=== PATIENT | male | born 1970 | race Caucasian/White ===

== ENCOUNTER 2018-07-18 13:15 | Inpatient (IN) | payer SELFPAY, OTHER ==
[2018-07-18 14:15] LABS: BASO # 0.1 10^3/uL (0.0-0.2); BASO % 1.2 % (0.0-1.0); EOS % 0.2 % (0.0-3.0); HEMOGLOBIN 13.8 g/dl (13.5-17.5); IMMATURE GRANULOCYTE % 0.2 % (0-3.0); LYMPH # 0.7 10^3/uL (1.5-4.5); LYMPH % 16.5 % (24.0-44.0); MEAN CORPUSCULAR HEMOGLOBIN 33.8 pg (27.0-33.0); MEAN CORPUSCULAR HGB CONC 34.5 g/dl (32.0-36.5); MONO # 0.5 10^3/uL (0.0-0.8); MONO % 11.1 % (0.0-5.0); NEUTROPHILS % 70.8 % (36.0-66.0); PLATELET COUNT, AUTOMATED 221 10^3/uL (150-450); RED BLOOD COUNT 4.08 10^6/uL (4.30-6.10); RED CELL DISTRIBUTION WIDTH 14.3 % (11.5-14.5); WHITE BLOOD COUNT 4.2 10^3/uL (4.0-10.0)
[2018-07-18 14:18] LABS: INR 1.02; PROTHROMBIN TIME 13.5 SECONDS (12.1-14.4)
[2018-07-18 14:19] LABS: PARTIAL THROMBOPLASTIN TIME 27.2 SECONDS (25.4-37.6)
[2018-07-18 14:22] LABS: AMMONIA 16 uMOL/L (<32)
[2018-07-18 14:32] LABS: ALBUMIN 3.1 GM/DL (3.2-5.2); ALBUMIN/GLOBULIN RATIO 0.97 (1.00-1.93); ALKALINE PHOSPHATASE 100 U/L (45-117); ALT/SGPT 44 U/L (12-78); ANION GAP 6 MEQ/L (8-16); AST/SGOT 34 U/L (7-37); BILIRUBIN,DIRECT 0.3 MG/DL (0.0-0.2); BLOOD UREA NITROGEN 10 MG/DL (7-18); CALCIUM LEVEL 8.7 MG/DL (8.5-10.1); CARBON DIOXIDE LEVEL 27 MEQ/L (21-32); CHLORIDE LEVEL 105 MEQ/L (98-107); CPK CREATINE PHOSPHOKINASE 157 U/L (39-308); CREATININE FOR GFR 1.29 MG/DL (0.70-1.30); GLOMERULAR FILTRATION RATE > 60.0 (>56); GLUCOSE, FASTING 109 MG/DL (70-100); MB/CK RELATIVE INDEX 1.91 (< OR =4); POTASSIUM SERUM 4.1 MEQ/L (3.5-5.1); SODIUM LEVEL 138 MEQ/L (136-145); TOTAL PROTEIN 6.3 GM/DL (6.4-8.2); TROPONIN I 0.04 NG/ML (< 0.10)
[2018-07-18] MEDS: FUROSEMIDE 40 MG/4 ML VIAL (J1940) IV ×2 (14:50→18:31)
[2018-07-18 14:54] LABS: NT-PRO BNP 15289 PG/ML (<125)
[2018-07-18] MEDS: NITROGLYCERIN 2% OINT 1 GM *U/D* PKT TOP (15:00)
[2018-07-18] MEDS ORDERED: ONDANSETRON 4 MG TAB (S0181) PO (17:00)
[2018-07-18] MEDS: MULTIVITAMINS/MINERALS THERAP 1 TAB PO (17:10)
[2018-07-18] MEDS: FOLIC ACID 1 MG TAB PO (18:27)
[2018-07-18] MEDS: LORazepam 2 MG TAB PO (18:27)
[2018-07-18] MEDS: THIAMINE 100 MG TAB PO (18:27)
[2018-07-18] MEDS ORDERED: HEPARIN SOD (PORCINE) 5000 UNITS/ML VIAL SC (22:00)
[2018-07-19] MEDS ORDERED: THIAMINE 100 MG TAB PO (09:00)
[2018-07-19] MEDS ORDERED: NICOTINE 14 MG/24 HR TRANSDERMAL TD (09:00)
== END 2018-07-18 20:19 | disposition left against medical advice (07) | DRG 194 ==
LOC: M ED 13:15 → M ED INP 16:47
DX: I50.9 Heart failure, unspecified (principal); I16.0 Hypertensive urgency; F10.10 Alcohol abuse, uncomplicated; F17.200 Nicotine dependence, unspecified, uncomplicated

== ENCOUNTER 2018-07-21 13:01 | Inpatient (IN) | payer SELFPAY ==
[2018-07-21 13:46] LABS: BASO # 0.1 10^3/uL (0.0-0.2); BASO % 1.5 % (0.0-1.0); HEMATOCRIT 48.4 % (42.0-52.0); HEMOGLOBIN 16.7 g/dl (13.5-17.5); IMMATURE GRANULOCYTE % 0.3 % (0-3.0); LYMPH # 1.2 10^3/uL (1.5-4.5); LYMPH % 31.5 % (24.0-44.0); MEAN CORPUSCULAR HEMOGLOBIN 33.9 pg (27.0-33.0); MEAN CORPUSCULAR HGB CONC 34.5 g/dl (32.0-36.5); MEAN CORPUSCULAR VOLUME 98.2 fl (80.0-96.0); MONO # 0.5 10^3/uL (0.0-0.8); MONO % 11.5 % (0.0-5.0); NEUTROPHILS # 2.2 10^3/uL (1.8-7.7); NEUTROPHILS % 55.2 % (36.0-66.0); PLATELET COUNT, AUTOMATED 164 10^3/uL (150-450); RED BLOOD COUNT 4.93 10^6/uL (4.30-6.10); RED CELL DISTRIBUTION WIDTH 14.1 % (11.5-14.5); WHITE BLOOD COUNT 3.9 10^3/uL (4.0-10.0)
[2018-07-21] MEDS: IPRATROPIUM 0.5MG/ALBUTEROL 2.5MG INH SOL UD 3ML (DUONEB)(J7620) NEB (13:50)
[2018-07-21 13:54] LABS: ABG BASE EXCESS 4.5 (-2.0-2.0); ABG HCO3 24.2 MEQ/L (22.0-26.0); ABG O2 SATURATION 97.2 % (95.0-99.0); ABG PARTIAL PRESSURE CO2 24.6 mmHg (35.0-45.0); ABG PARTIAL PRESSURE O2 79.7 mmHg (75.0-100.0); ABG STANDARD HCO3 28.5 MEQ/L (22.0-26.0); ABG TOTAL CO2 24.9 MEQ/L (22.0-29.0)
[2018-07-21 14:15] LABS: LACTIC ACID SEPSIS PROTOCOL 1.5 MMOL/L (0.4-2.0)
[2018-07-21] MEDS: MULTIVITAMINS/MINERALS THERAP 1 TAB PO (14:18)
[2018-07-21] MEDS: FOLIC ACID 1 MG TAB PO (14:18)
[2018-07-21] MEDS: NICOTINE 21MG/24HR 1 EA TRANSDERMAL TD (14:18)
[2018-07-21] MEDS: THIAMINE 100 MG TAB PO ×2 (14:18→21:00)
[2018-07-21 14:21] LABS: ALBUMIN 3.1 GM/DL (3.2-5.2); ALBUMIN/GLOBULIN RATIO 0.84 (1.00-1.93); ALKALINE PHOSPHATASE 103 U/L (45-117); ALT/SGPT 96 U/L (12-78); ANION GAP 9 MEQ/L (8-16); AST/SGOT 131 U/L (7-37); BILIRUBIN,DIRECT 0.2 MG/DL (0.0-0.2); BILIRUBIN,TOTAL 0.7 MG/DL (0.2-1.0); BLOOD UREA NITROGEN 9 MG/DL (7-18); CARBON DIOXIDE LEVEL 28 MEQ/L (21-32); CHLORIDE LEVEL 100 MEQ/L (98-107); CPK CREATINE PHOSPHOKINASE 358 U/L (39-308); CREATININE FOR GFR 1.51 MG/DL (0.70-1.30); GLOMERULAR FILTRATION RATE 52.3 (>56); GLUCOSE, FASTING 115 MG/DL (70-100); MB/CK RELATIVE INDEX 0.53 (< OR =4); NT-PRO BNP 10899 PG/ML (<125); POTASSIUM SERUM 3.7 MEQ/L (3.5-5.1); SODIUM LEVEL 137 MEQ/L (136-145); TOTAL PROTEIN 6.8 GM/DL (6.4-8.2); TROPONIN I 0.16 NG/ML (< 0.10)
[2018-07-21] MEDS: FUROSEMIDE 40 MG/4 ML VIAL (J1940) IV ×2 (15:04→18:00)
[2018-07-21 15:45] LABS: KETONE, URINE AUTO RFX NEGATIVE (NEGATIVE); LEUKOCYTE ESTERASE UR AUTO RFX NEGATIVE (NEGATIVE); MUCUS, URINE RFX SMALL (NEGATIVE); NITRITE, URINE AUTO RFX NEGATIVE (NEGATIVE); RBC, URINE AUTO RFX 1 /HPF (0-3); SPECIFIC GRAVITY UR AUTO RFX 1.006 (1.002-1.035); SQUAM EPITHELIAL CELL UR AURFX 0 /HPF (0-6); WBC, URINE AUTO RFX 0 /HPF (0-3)
[2018-07-21 16:13] LABS: CPK CREATINE PHOSPHOKINASE 323 U/L (39-308); MB/CK RELATIVE INDEX 0.43 (< OR =4); TROPONIN I 0.17 NG/ML (< 0.10)
[2018-07-21 21:03] LABS: CPK CREATINE PHOSPHOKINASE 334 U/L (39-308); MB/CK RELATIVE INDEX 0.36 (< OR =4)
[2018-07-21] MEDS: HEPARIN SOD (PORCINE) 5000 UNITS/ML VIAL SC (22:00)
[2018-07-21] MEDS ORDERED: NICOTINE 14 MG/24 HR TRANSDERMAL TD (22:00)
[2018-07-21] MEDS: LORazepam 2 MG TAB PO (23:44)
[2018-07-22] MEDS: FUROSEMIDE 40 MG/4 ML VIAL (J1940) IV ×2 (01:19→06:13)
[2018-07-22] MEDS: LORazepam 2 MG TAB PO (04:40)
[2018-07-22 05:36] LABS: HEMATOCRIT 51.9 % (42.0-52.0); HEMOGLOBIN 17.7 g/dl (13.5-17.5); MEAN CORPUSCULAR HEMOGLOBIN 33.1 pg (27.0-33.0); MEAN CORPUSCULAR HGB CONC 34.1 g/dl (32.0-36.5); PLATELET COUNT, AUTOMATED 141 10^3/uL (150-450); RED BLOOD COUNT 5.35 10^6/uL (4.30-6.10); RED CELL DISTRIBUTION WIDTH 13.9 % (11.5-14.5); WHITE BLOOD COUNT 4.2 10^3/uL (4.0-10.0)
[2018-07-22 06:04] LABS: ALBUMIN 2.9 GM/DL (3.2-5.2); ALBUMIN/GLOBULIN RATIO 0.78 (1.00-1.93); ALKALINE PHOSPHATASE 94 U/L (45-117); ALT/SGPT 87 U/L (12-78); ANION GAP 7 MEQ/L (8-16); AST/SGOT 104 U/L (7-37); BILIRUBIN,DIRECT 0.2 MG/DL (0.0-0.2); BILIRUBIN,TOTAL 0.6 MG/DL (0.2-1.0); BLOOD UREA NITROGEN 16 MG/DL (7-18); CARBON DIOXIDE LEVEL 31 MEQ/L (21-32); CHLORIDE LEVEL 98 MEQ/L (98-107); CPK CREATINE PHOSPHOKINASE 266 U/L (39-308); CREATININE FOR GFR 1.65 MG/DL (0.70-1.30); GLOMERULAR FILTRATION RATE 47.2 (>56); GLUCOSE, FASTING 102 MG/DL (70-100); MAGNESIUM LEVEL 1.8 MG/DL (1.8-2.4); MB/CK RELATIVE INDEX 0.53 (< OR =4); POTASSIUM SERUM 3.6 MEQ/L (3.5-5.1); SODIUM LEVEL 136 MEQ/L (136-145); TOTAL PROTEIN 6.6 GM/DL (6.4-8.2); TROPONIN I 0.18 NG/ML (< 0.10)
[2018-07-22] MEDS: HEPARIN SOD (PORCINE) 5000 UNITS/ML VIAL SC ×3 (06:13→21:06)
[2018-07-22] MEDS: THIAMINE 100 MG TAB PO ×2 (08:26→21:05)
[2018-07-22] MEDS: ACETAMINOPHEN TAB 650MG DOSE (2X325MG) PO (08:27)
[2018-07-22] MEDS: FOLIC ACID 1 MG TAB PO (08:27)
[2018-07-22] MEDS: MULTIVITAMINS/MINERALS THERAP 1 TAB PO (08:27)
[2018-07-22] MEDS ORDERED: SLF 3 ML SYR IV (08:45)
[2018-07-22] MEDS ORDERED: FOLIC ACID 1 MG TAB PO (09:00)
[2018-07-22] MEDS ORDERED: MULTIVITAMINS/MINERALS THERAP 1 TAB PO (09:00)
[2018-07-22] MEDS: SLF 3 ML SYR IV ×2 (13:24→21:07)
[2018-07-22] MEDS: amLODIPine 10 MG TAB PO (15:04)
[2018-07-22] MEDS: hydrALAZINE INJ 20 MG/ML VIAL IV (17:00)
[2018-07-23] MEDS: hydrALAZINE INJ 20 MG/ML VIAL IV ×4 (00:10→18:17)
[2018-07-23] MEDS: hydrOXYzine 25 MG TAB PO (00:10)
[2018-07-23 05:26] LABS: HEMATOCRIT 49.3 % (42.0-52.0); HEMOGLOBIN 17.1 g/dl (13.5-17.5); MEAN CORPUSCULAR HEMOGLOBIN 32.8 pg (27.0-33.0); MEAN CORPUSCULAR HGB CONC 34.7 g/dl (32.0-36.5); MEAN CORPUSCULAR VOLUME 94.4 fl (80.0-96.0); PLATELET COUNT, AUTOMATED 152 10^3/uL (150-450); RED BLOOD COUNT 5.22 10^6/uL (4.30-6.10); RED CELL DISTRIBUTION WIDTH 13.6 % (11.5-14.5); WHITE BLOOD COUNT 7.1 10^3/uL (4.0-10.0)
[2018-07-23] MEDS: SLF 3 ML SYR IV ×3 (05:31→21:19)
[2018-07-23] MEDS: HEPARIN SOD (PORCINE) 5000 UNITS/ML VIAL SC ×3 (05:32→21:18)
[2018-07-23 05:43] LABS: ALBUMIN 2.9 GM/DL (3.2-5.2); ALBUMIN/GLOBULIN RATIO 0.76 (1.00-1.93); ALKALINE PHOSPHATASE 97 U/L (45-117); ALT/SGPT 79 U/L (12-78); ANION GAP 8 MEQ/L (8-16); AST/SGOT 70 U/L (7-37); BILIRUBIN,DIRECT 0.2 MG/DL (0.0-0.2); BILIRUBIN,TOTAL 0.5 MG/DL (0.2-1.0); BLOOD UREA NITROGEN 23 MG/DL (7-18); CALCIUM LEVEL 8.1 MG/DL (8.5-10.1); CARBON DIOXIDE LEVEL 26 MEQ/L (21-32); CHLORIDE LEVEL 101 MEQ/L (98-107); CREATININE FOR GFR 1.37 MG/DL (0.70-1.30); GLOMERULAR FILTRATION RATE 58.6 (>56); GLUCOSE, FASTING 92 MG/DL (70-100); MAGNESIUM LEVEL 1.8 MG/DL (1.8-2.4); POTASSIUM SERUM 3.1 MEQ/L (3.5-5.1); SODIUM LEVEL 135 MEQ/L (136-145); TOTAL PROTEIN 6.7 GM/DL (6.4-8.2)
[2018-07-23] MEDS: MULTIVITAMINS/MINERALS THERAP 1 TAB PO (09:41)
[2018-07-23] MEDS: FOLIC ACID 1 MG TAB PO (09:41)
[2018-07-23] MEDS: POTASSIUM CHLORIDE 10 MEQ SR TABLET PO (09:41)
[2018-07-23] MEDS: THIAMINE 100 MG TAB PO ×2 (09:42→21:18)
[2018-07-23] MEDS: amLODIPine 10 MG TAB PO (09:42)
[2018-07-23 11:07] LABS: HEPATITIS A ANTIBODY IGM NEGATIVE (NEGATIVE); HEPATITIS B CORE ANTIBODY IGM NEGATIVE (NEGATIVE); HEPATITIS B SURFACE ANTIGEN NEGATIVE (NEGATIVE)
[2018-07-23 11:07] LABS: HEPATITIS C VIRUS ABY INDEX 0.2 INDEX (<0.8)
[2018-07-24] MEDS: hydrALAZINE INJ 20 MG/ML VIAL IV ×3 (05:14→11:43)
[2018-07-24] MEDS: SLF 3 ML SYR IV ×3 (05:14→21:03)
[2018-07-24] MEDS: HEPARIN SOD (PORCINE) 5000 UNITS/ML VIAL SC ×3 (05:14→21:03)
[2018-07-24 06:05] LABS: HEMATOCRIT 47.9 % (42.0-52.0); HEMOGLOBIN 16.5 g/dl (13.5-17.5); MEAN CORPUSCULAR HGB CONC 34.4 g/dl (32.0-36.5); MEAN CORPUSCULAR VOLUME 95.8 fl (80.0-96.0); PLATELET COUNT, AUTOMATED 161 10^3/uL (150-450); RED CELL DISTRIBUTION WIDTH 13.6 % (11.5-14.5); WHITE BLOOD COUNT 6.1 10^3/uL (4.0-10.0)
[2018-07-24 06:36] LABS: ALBUMIN 2.5 GM/DL (3.2-5.2); ALBUMIN/GLOBULIN RATIO 0.66 (1.00-1.93); ALKALINE PHOSPHATASE 99 U/L (45-117); ALT/SGPT 74 U/L (12-78); ANION GAP 8 MEQ/L (8-16); AST/SGOT 65 U/L (7-37); BILIRUBIN,DIRECT 0.1 MG/DL (0.0-0.2); BILIRUBIN,TOTAL 0.4 MG/DL (0.2-1.0); BLOOD UREA NITROGEN 23 MG/DL (7-18); CARBON DIOXIDE LEVEL 26 MEQ/L (21-32); CHLORIDE LEVEL 102 MEQ/L (98-107); CREATININE FOR GFR 1.43 MG/DL (0.70-1.30); GLOMERULAR FILTRATION RATE 55.7 (>56); GLUCOSE, FASTING 128 MG/DL (70-100); MAGNESIUM LEVEL 2.1 MG/DL (1.8-2.4); POTASSIUM SERUM 3.4 MEQ/L (3.5-5.1); SODIUM LEVEL 136 MEQ/L (136-145); TOTAL PROTEIN 6.3 GM/DL (6.4-8.2)
[2018-07-24] MEDS: FOLIC ACID 1 MG TAB PO (08:28)
[2018-07-24] MEDS: MULTIVITAMINS/MINERALS THERAP 1 TAB PO (08:28)
[2018-07-24] MEDS: amLODIPine 10 MG TAB PO (08:28)
[2018-07-24] MEDS: NS 1,000 ML IV (08:28)
[2018-07-24] MEDS: THIAMINE 100 MG TAB PO ×2 (08:28→21:03)
[2018-07-24] MEDS: POTASSIUM CHLORIDE 10 MEQ SR TABLET PO (08:29)
[2018-07-24] MEDS ORDERED: **hydrALAZINE HCL** 25 MG TAB PO (12:00)
[2018-07-24] MEDS: **hydrALAZINE HCL** 25 MG TAB PO (17:36)
[2018-07-24] MEDS: ACETAMINOPHEN TAB 650MG DOSE (2X325MG) PO (21:03)
[2018-07-25] MEDS: **hydrALAZINE HCL** 25 MG TAB PO ×3 (00:05→12:21)
[2018-07-25] MEDS: SLF 3 ML SYR IV (06:00)
[2018-07-25 06:05] LABS: HEMATOCRIT 45.9 % (42.0-52.0); HEMOGLOBIN 15.6 g/dl (13.5-17.5); PLATELET COUNT, AUTOMATED 192 10^3/uL (150-450); RED BLOOD COUNT 4.73 10^6/uL (4.30-6.10); RED CELL DISTRIBUTION WIDTH 13.6 % (11.5-14.5); WHITE BLOOD COUNT 5.5 10^3/uL (4.0-10.0)
[2018-07-25] MEDS: HEPARIN SOD (PORCINE) 5000 UNITS/ML VIAL SC (06:17)
[2018-07-25 06:28] LABS: ANION GAP 4 MEQ/L (8-16); BLOOD UREA NITROGEN 17 MG/DL (7-18); CALCIUM LEVEL 8.2 MG/DL (8.5-10.1); CARBON DIOXIDE LEVEL 28 MEQ/L (21-32); CHLORIDE LEVEL 106 MEQ/L (98-107); CREATININE FOR GFR 1.27 MG/DL (0.70-1.30); GLOMERULAR FILTRATION RATE > 60.0 (>56); GLUCOSE, FASTING 89 MG/DL (70-100); POTASSIUM SERUM 4.3 MEQ/L (3.5-5.1); SODIUM LEVEL 138 MEQ/L (136-145)
[2018-07-25] MEDS: THIAMINE 100 MG TAB PO (08:51)
[2018-07-25] MEDS: MULTIVITAMINS/MINERALS THERAP 1 TAB PO (08:52)
[2018-07-25] MEDS: FOLIC ACID 1 MG TAB PO (08:52)
[2018-07-25] MEDS: amLODIPine 10 MG TAB PO (08:55)
== END 2018-07-25 12:33 | disposition home or self-care (01) | DRG 194 ==
LOC: M PCU 07-22 00:52 → M MSPAV 07-24 16:06 → M ED 13:01 → M ED INP 21:39
DX: I13.0 Hypertensive heart and chronic kidney disease with heart failure and stage 1 through stage 4 chronic kidney disease, or unspecified chronic kidney disease (principal); N17.9 Acute kidney failure, unspecified; J00 Acute nasopharyngitis [common cold]; F10.10 Alcohol abuse, uncomplicated; F17.200 Nicotine dependence, unspecified, uncomplicated; F12.10 Cannabis abuse, uncomplicated; B97.10 Unspecified enterovirus as the cause of diseases classified elsewhere; B34.8 Other viral infections of unspecified site; I50.33 Acute on chronic diastolic (congestive) heart failure

== ENCOUNTER → 2018-12-22 | Outpatient (REF) | payer MEDICAID, SELFPAY ==
[~2018-12-22] MED LIST: AMLO10TA5 PO; HYDR-3911 PO; IBUPOTC PO
[2018-12-22 19:10] LABS: BASO # 0.1 10^3/uL (0.0-0.2); BASO % 0.9 % (0.0-1.0); EOS % 0.5 % (0.0-3.0); HEMATOCRIT 46.2 % (42.0-52.0); HEMOGLOBIN 15.8 g/dl (13.5-17.5); LYMPH # 2.2 10^3/uL (1.5-4.5); LYMPH % 27.8 % (24.0-44.0); MEAN CORPUSCULAR HEMOGLOBIN 31.1 pg (27.0-33.0); MEAN CORPUSCULAR HGB CONC 34.2 g/dl (32.0-36.5); MEAN CORPUSCULAR VOLUME 90.9 fl (80.0-96.0); MONO # 0.6 10^3/uL (0.0-0.8); MONO % 7.4 % (0.0-5.0); NEUTROPHILS # 4.9 10^3/uL (1.8-7.7); NEUTROPHILS % 63.3 % (36.0-66.0); PLATELET COUNT, AUTOMATED 318 10^3/uL (150-450); RED BLOOD COUNT 5.08 10^6/uL (4.30-6.10); WHITE BLOOD COUNT 7.8 10^3/uL (4.0-10.0)
[2018-12-22 19:27] LABS: ALBUMIN 4.3 GM/DL (3.2-5.2); ALT/SGPT 60 U/L (12-78); BILIRUBIN,TOTAL 0.4 MG/DL (0.2-1.0); BLOOD UREA NITROGEN 10 MG/DL (7-18); CALCIUM LEVEL 9.5 MG/DL (8.5-10.1); CARBON DIOXIDE LEVEL 29 MEQ/L (21-32); CHLORIDE LEVEL 107 MEQ/L (98-107); CHOLESTEROL LEVEL 150 MG/DL (<200); CHOLESTEROL RISK RATIO 3.658 (<5); FOLATE 19.3 NG/ML; GLOMERULAR FILTRATION RATE > 60.0 (>56); GLUCOSE, FASTING 95 MG/DL (70-100); HDL CHOLESTEROL 41 MG/DL (>40); LDL CHOLESTEROL 83 MG/DL (<100); NON-HDL-C 109 MG/DL; POTASSIUM SERUM 4.1 MEQ/L (3.5-5.1); SODIUM LEVEL 141 MEQ/L (136-145); TOTAL 25(OH) VITAMIN D 14.3 NG/ML (30.0-100.0); TOTAL PROTEIN 7.7 GM/DL (6.4-8.2); TRIGLYCERIDES LEVEL 132 MG/DL (<150); VITAMIN B12 LEVEL 487 PG/ML
[2018-12-22 19:29] LABS: HEMOGLOBIN A1c 5.5 %
== END ==
LOC: M LAB REF 18:41
PROVIDERS: ATTEND Nurse Practitioner Family
DX: I10 Essential (primary) hypertension (principal); Z86.73 Personal history of transient ischemic attack (TIA), and cerebral infarction without residual deficits; Z13.9 Encounter for screening, unspecified

== ENCOUNTER → 2019-01-20 | Outpatient (CLI) | payer SELFPAY | LOC: M OUTALCOH 08:34 | PROVIDERS: ATTEND Psychiatry & Neurology Psychiatry | DX: F10.20 Alcohol dependence, uncomplicated (principal) ==

== ENCOUNTER → 2019-03-02 | Outpatient (CLI) | payer MEDICAID | LOC: M OUTALCOH 08:42 | PROVIDERS: ATTEND Psychiatry & Neurology Psychiatry | DX: F10.20 Alcohol dependence, uncomplicated (principal) ==

== ENCOUNTER → 2019-03-09 | Outpatient (CLI) | payer MEDICAID ==
[~2019-03-09] MED LIST changes: +ASPI81TA85 PO; +ATOR80TA59 PO; +CLOP75TA2 PO; +DOCU100C16 PO; +DOXY100C37 PO; +GABA-843 PO; +HYDR100T PO; +HYDR1TAB33 PO; +HYDR50TA PO; +LISI-672 PO; +METO1TAB7 PO; +MIRA3350 PO; +NAPR250T4 PO; +NAPR500T6 PO; +PROAAER10 INH; +SENN-83 PO; +TESS100C PO
--- NOTE | 2019-03-09 13:14 | REP ---
Clinical: Pain . Technique: Internal rotation, external rotation, and Y view right shoulder . Findings: No acute fracture or dislocation. The acromioclavicular and glenohumeral joints are intact and age appropriate. No periarticular calcifications or overt degenerative changes are appreciated. Sub acromial space is normal. Surrounding soft tissues are unremarkable. Impression: Age-appropriate right shoulder radiographs. No overt osteoarthritic degenerative changes are noted. If the patient remains symptomatic consider MRI for further investigation. Electronically Signed by Lucas Chavez MD 03/09/2019 01:05 P
== END ==
LOC: M WUC 12:27
PROVIDERS: ATTEND Nurse Practitioner Family
DX: M25.511 Pain in right shoulder (principal)

== ENCOUNTER 2019-04-07 16:00 | Outpatient (RCR) | payer MEDICAID ==
[~2019-04-07 16:00] MED LIST changes: -ASPI81TA85 PO; -ATOR80TA59 PO; -CLOP75TA2 PO; -DOCU100C16 PO; -DOXY100C37 PO; -GABA-843 PO; -HYDR100T PO; -HYDR1TAB33 PO; -HYDR50TA PO; -LISI-672 PO; -METO1TAB7 PO; -MIRA3350 PO; -NAPR250T4 PO; -NAPR500T6 PO; -PROAAER10 INH; -SENN-83 PO; -TESS100C PO
== END 2019-04-08 ==
LOC: M OUTALCOH 16:00
PROVIDERS: ATTEND Psychiatry & Neurology Psychiatry
DX: F10.20 Alcohol dependence, uncomplicated (principal); F17.200 Nicotine dependence, unspecified, uncomplicated

== ENCOUNTER → 2019-04-09 | Outpatient (CLI) | payer MEDICAID ==
[2019-04-09 17:01] LABS: CREATININE FOR GFR 1.57 MG/DL (0.70-1.30); GLOMERULAR FILTRATION RATE 49.8 (>56)
== END ==
LOC: M WUC 14:45
PROVIDERS: ATTEND Psychiatry & Neurology Neurology
DX: I10 Essential (primary) hypertension (principal)

== ENCOUNTER 2019-04-24 14:06 | Inpatient (IN) | payer MEDICAID, OTHER ==
[~2019-04-24] VITALS: Ht 175.3 cm; Wt 71.8 kg
[2019-04-24] MEDS ORDERED: GABA-843 PO (14:28)
[2019-04-24] MEDS ORDERED: LISI-672 PO (14:28)
[2019-04-24] MEDS ORDERED: SENN-83 PO (14:28)
[2019-04-24] MEDS ORDERED: ATOR80TA59 PO (14:28)
[2019-04-24] MEDS ORDERED: ASPI81TA85 PO (14:28)
[2019-04-24] MEDS ORDERED: NAPR250T4 PO (14:28)
[2019-04-24] MEDS ORDERED: CLOP75TA2 PO (14:28)
[2019-04-24] MEDS ORDERED: METO1TAB7 PO (14:28)
[2019-04-24 14:32] LABS: BASO # 0.1 10^3/uL (0.0-0.2); EOS # 0.1 10^3/uL (0.0-0.50); EOS % 1.2 % (0.0-3.0); HEMATOCRIT 43.1 % (42.0-52.0); HEMOGLOBIN 14.8 g/dl (13.5-17.5); LYMPH # 3.5 10^3/uL (1.5-4.5); LYMPH % 45.8 % (24.0-44.0); MEAN CORPUSCULAR HGB CONC 34.3 g/dl (32.0-36.5); MEAN CORPUSCULAR VOLUME 93.1 fl (80.0-96.0); MONO # 0.7 10^3/uL (0.0-0.8); MONO % 9.3 % (0.0-5.0); NEUTROPHILS # 3.2 10^3/uL (1.8-7.7); NEUTROPHILS % 42.3 % (36.0-66.0); PLATELET COUNT, AUTOMATED 273 10^3/uL (150-450); RED BLOOD COUNT 4.63 10^6/uL (4.30-6.10); WHITE BLOOD COUNT 7.6 10^3/uL (4.0-10.0)
[2019-04-24 15:04] LABS: ALBUMIN 3.9 GM/DL (3.2-5.2); BILIRUBIN,TOTAL 0.3 MG/DL (0.2-1.0); CALCIUM LEVEL 9.5 MG/DL (8.5-10.1); CREATININE FOR GFR 2.07 MG/DL (0.70-1.30); GLOMERULAR FILTRATION RATE 36.2 (>56); POTASSIUM SERUM 4.5 MEQ/L (3.5-5.1); TOTAL PROTEIN 7.2 GM/DL (6.4-8.2)
[2019-04-24] MEDS ORDERED: NAPR500T6 PO (15:42)
[2019-04-24] MEDS ORDERED: AMLO10TA5 PO (15:43)
[2019-04-24] MEDS ORDERED: HYDR1TAB33 PO (15:44)
[2019-04-24] MEDS ORDERED: MOM 30ML SUSPENSION UDC PO PRN (15:45)
[2019-04-24] MEDS ORDERED: MAALOX 30 ML SUSP *UDC PO PRN (15:45)
--- NOTE | 2019-04-24 16:50 | REP ---
HISTORY: Near-syncopal episode. COMPARISON: 07/21/2018. The technique utilized in obtaining the radiograph has magnified the cardiac silhouette and accentuated the interstitial markings. The superior mediastinal structures are midline. The cardiac silhouette is unremarkable in size, shape, and position. The diaphragmatic surfaces of the lungs are regular, and the costophrenic angles are clear. The pulmonary young are clear. The imaged osseous structures are intact. IMPRESSION: There is no acute cardiopulmonary disease. Since the last examination an implanted device has been placed in the left anterior chest wall. Electronically Signed by Rosendo Santos DO 04/27/2019 12:38 P
[2019-04-24] MEDS: NS 1,000 ML IV SCH ×2 (16:53→21:53)
--- NOTE | 2019-04-24 17:44 | HPEPDOC ---
General Date of Admission 04/24/19 Date of Service: Apr 24, 2019 Other Providers Cardiology: Dr Abreu; PCP: [facility] Chief Complaint The patient is a 49-year-old male admitted with a reason for visit of Dizziness, Sob, Chest Pain. Source: Patient, Old records Exam Limitations: No limitations, Mild cognitive slowing History of Present Illness 49 yo male presents with his partner to ED for chest pain, dizziness, weakness since October 2018 but worsening over past 24 hours. He states today had severe chest pain, no radiation, no diaphoresis, no N, no vomiting, substernal, of unknown duration. nothing made it better or worse. Wax/wane. He states chronic SOB/CALLE at 50 feet. He states chornic right sided parathesia to arm/leg after his stroke in 10/2018. He states BP in Oct 212/130 and over last month BP 180/80. He states multiple medication adjustments over past 4-6 weeks made dizziness and weakness worse. He states his metoprolol was increased to 100mg and then over past week decreased back to 50mg. He states lisinopril has been increased to 30mg and he was taken off hydralazine. He has been using naproxen BID for for myalgia and arthalgia without relief. He states he just "doesn't feel good" and over past 3 days, took at 300mile non stop driving trip and went on a slow 2 mile walk which "wore me out" and had to stop to rest. On presentation to ED, he was found to be bradycardic (30-40 range), normotensive, and with increased creatinine (currently 2.0 with prior baseline 1.3). Home Medications Scheduled Amlodipine Besylate (Amlodipine Besylate) 10 Mg Tablet, 10 MG PO DAILY, (Reported) Aspirin (Aspir 81) 81 Mg Tablet.dr, 81 MG PO DAILY, (Reported) Atorvastatin Calcium (Atorvastatin Calcium) 80 Mg Tablet, 80 MG PO QHS, (Reported) Clopidogrel Bisulfate (Clopidogrel) 75 Mg Tablet, 75 MG PO DAILY, (Reported) Gabapentin (Gabapentin) 300 Mg Capsule, 300 MG PO BID, (Reported) Lisinopril (Lisinopril) 30 Mg Tablet, 30 MG PO DAILY, (Reported) Metoprolol Succinate (Metoprolol Succinate) 50 Mg Tab.er.24h, 50 MG PO DAILY, (Reported) Sennosides (Senna) 8.6 Mg Tablet, 17.2 MG PO QHS, (Reported) Scheduled PRN Hydroxyzine HCl (Hydroxyzine HCl) 50 Mg Tablet, 50 MG PO TID PRN for ANXIETY, (Reported) Naproxen (Naproxen) 500 Mg Tablet.dr, 500 MG PO TID PRN for PAIN, (Reported) Allergies Coded Allergies: No Known Allergies (Unverified , 07/18/18) Past Medical History Medical History CVA with residual right sided weakness/parathesia; HTN; CHF (normal echo 07/11 018) Past surgical history : Loop recorder placed 10/2018 and to be removed in 1 year in [place] with Dr Tyrell Izaguirre Hx: tobacco 1ppd, EtOH (quit jul 2018), has live in male partner Family history: father age 71 [place], mother alive in poor health with renal and hepatic failure A-FIB/CHADSVASC A-FIB History Current/History of A-Fib/PAF?: No Review of Systems Other systems 10 systems reviewed and negative except as per HPI Physical Examination General Exam: Positive: Alert, Cooperative, No Acute Distress Eye Exam: Positive: PERRLA, Conjunctiva & lids normal, EOMI ENT Exam: Positive: Atraumatic, Mucous membr. moist/pink, Pharynx Normal, Tongue Midline, Other ENT (poor dentition) Neck Exam: Positive: Supple, +2 carotid pulse wo bruit Chest Exam: Positive: Clear to auscultation, Normal air movement; Negative: Rales, Rhonchi, Wheezing Heart Exam: Positive: Bradycardic, Other (no murmur) Telemetry: Positive: Other Telemetry: (sinus alissa) Abdomen Exam: Positive: Normal bowel sounds, Soft (NT ND) Extremity Exam: Positive: Clubbing, Normal pulses, Other (no calf pain or swelling.); Negative: Cyanosis, Edema Skin Exam: Positive: Nl turgor and temperature Neuro Exam: Positive: Normal Speech, Normal Tone, Sensation Intact, Cranial Nerves 3-12 NL, Other (right leg/arm strength 4/5; left arm/leg strength 5/5; ) Psych Exam: Positive: Mental status NL, Memory Intact, Oriented x 3 Vital Signs Vital Signs Date Time Temp Pulse Resp B/P (MAP) Pulse Ox O2 Delivery O2 Flow Rate FiO2 04/24/19 15:30 44 163/98 (119) 99 04/24/19 14:07 96.8 20 Room Air Laboratory Data Labs 24H Laboratory Tests 2 04/24/19 14:19: Immature Granulocyte % (Auto) 0.4, White Blood Count 7.6, Red Blood Count 4.63, Hemoglobin 14.8, Hematocrit 43.1, Mean Corpuscular Volume 93.1, Mean Corpuscular Hemoglobin 32.0, Mean Corpuscular Hemoglobin Concent 34.3, Red Cell Distribution Width 12.5, Platelet Count 273, Neutrophils (%) (Auto) 42.3, Lymphocytes (%) (Auto) 45.8H, Monocytes (%) (Auto) 9.3H, Eosinophils (%) (Auto) 1.2, Basophils (%) (Auto) 1.0, Neutrophils # (Auto) 3.2, Lymphocytes # (Auto) 3.5, Monocytes # (Auto) 0.7, Eosinophils # (Auto) 0.1, Basophils # (Auto) 0.1, Nucleated Red Blood Cells % (auto) 0.0, Anion Gap 8, Glomerular Filtration Rate 36.2L, Blood Urea Nitrogen 24H, Creatinine 2.07H, Sodium Level 141, Potassium Level 4.5, Chloride Level 108H, Carbon Dioxide Level 25, Calcium Level 9.5, Aspartate Amino Transf (AST/SGOT) 35, Alanine Aminotransferase (ALT/SGPT) 78, Alkaline Phosphatase 99, Total Bilirubin 0.3, Total Protein 7.2, Albumin 3.9, Albumin/Globulin Ratio 1.18 CBC/BMP Laboratory Tests 04/24/19 14:19 Red Blood Count 4.63, Mean Corpuscular Volume 93.1, Mean Corpuscular Hemoglobin 32.0, Mean Corpuscular Hemoglobin Concent 34.3, Red Cell Distribution Width 12.5, Neutrophils (%) (Auto) 42.3, Lymphocytes (%) (Auto) 45.8 H, Monocytes (%) (Auto) 9.3 H, Eosinophils (%) (Auto) 1.2, Basophils (%) (Auto) 1.0, Neutrophils # (Auto) 3.2, Lymphocytes # (Auto) 3.5, Monocytes # (Auto) 0.7, Eosinophils # (Auto) 0.1, Basophils # (Auto) 0.1, Calcium Level 9.5, Aspartate Amino Transf (AST/SGOT) 35, Alanine Aminotransferase (ALT/SGPT) 78, Alkaline Phosphatase 99, Total Bilirubin 0.3, Total Protein 7.2, Albumin 3.9 Assessment/Plan 1) Bradycardia secondary to medication (metoprolol) Admit, tele, 48 hour monitoring. Hold metoprolol until HR increased to 60, then restart at lower dose (ie 12.5mg metoprolol tartrate) Patient has appointment with Dr Abreu next month and in Oct 2019, has appointment to have loop recorder reviewed with DR Santillan in [place] Check serial troponin, CPK and lipid panel 2) REMI due to probable ATN from VIRAL-I,NSAID Hold NSAID and VIRAL-I; 1 liter IVF with NS and recheck in creat in AM. If worsens, consider nephrology consult. His baseline creatinine is 1.3 3) HTN - currently normotensive. Hold norvasc, VIRAL and BBlker. Schedule hyd ralazine 50mg TID and add back betablocker and viral-I as labs and heart rate improve 4) history of right parathesia/weakness from CVA - consider PT/OT consult; ambulate in room 5) Hx of CHF in 07/2018 - no reoccurance. no signs of chronic or acute CHF. Monitor for now. DVT prophyalxis: Lovenox CODE: FULL Plan / VTE VTE Prophylaxis Ordered?: Yes ANGELO KIRKLAND DO Apr 24, 2019 15:42
[2019-04-24 18:50] LABS: CK-MB VALUE MASS 1.6 NG/ML (<3.6); MB/CK RELATIVE INDEX 1.28 (< OR =4); TROPONIN I 0.02 NG/ML (< 0.10)
--- NOTE | 2019-04-24 20:21 | ECGEPIP ---
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
[2019-04-24 20:50] VITALS: BP 153/81
[2019-04-24] MEDS: DOCUSATE SODIUM 100 MG CAP PO SCH (21:50)
[2019-04-24] MEDS: GABAPENTIN 300 MG CAP PO SCH (21:50)
[2019-04-24] MEDS: SENNA 8.6 MG TAB (SENOKOT) PO SCH (21:50)
[2019-04-24] MEDS: **hydrALAZINE** 50 MG TAB PO SCH (21:50)
[2019-04-24] MEDS: ATORVASTATIN 20 MG TAB PO SCH (21:51)
[2019-04-24] MEDS: ENOXAPARIN 40 MG/0.4 ML SYRINGE (J1650) SC SCH (21:52)
[2019-04-24] MEDS: ACETAMINOPHEN TAB 650MG DOSE (2X325MG) PO PRN (21:52)
[2019-04-24] MEDS: hydrOXYzine 50 MG TAB PO SCH (22:11)
[2019-04-25] VITALS (7 sets, daily range): BP systolic 118–178; BP diastolic 70–98
[2019-04-25 05:59] LABS: HEMATOCRIT 40.8 % (42.0-52.0); HEMOGLOBIN 13.8 g/dl (13.5-17.5); MEAN CORPUSCULAR HEMOGLOBIN 31.2 pg (27.0-33.0); MEAN CORPUSCULAR HGB CONC 33.8 g/dl (32.0-36.5); MEAN CORPUSCULAR VOLUME 92.1 fl (80.0-96.0); PLATELET COUNT, AUTOMATED 219 10^3/uL (150-450); RED BLOOD COUNT 4.43 10^6/uL (4.30-6.10); WHITE BLOOD COUNT 7.2 10^3/uL (4.0-10.0)
[2019-04-25 06:29] LABS: BILIRUBIN,TOTAL 0.7 MG/DL (0.2-1.0); CALCIUM LEVEL 8.9 MG/DL (8.5-10.1); CREATININE FOR GFR 1.4 MG/DL (0.70-1.30); GLOMERULAR FILTRATION RATE 56.9 (>56); MAGNESIUM LEVEL 1.9 MG/DL (1.8-2.4); TOTAL PROTEIN 6.3 GM/DL (6.4-8.2)
[2019-04-25] MEDS: NS 1,000 ML IV SCH ×2 (08:07→18:09)
[2019-04-25] MEDS: **hydrALAZINE** 50 MG TAB PO SCH ×2 (08:52→21:47)
[2019-04-25] MEDS: DOCUSATE SODIUM 100 MG CAP PO SCH ×2 (08:52→21:46)
[2019-04-25] MEDS: CLOPIDOGREL 75 MG TAB PO SCH (08:53)
[2019-04-25] MEDS: GABAPENTIN 300 MG CAP PO SCH ×2 (08:53→21:46)
[2019-04-25] MEDS: ASPIRIN 81 MG ENTERIC TAB PO SCH (08:53)
--- NOTE | 2019-04-25 11:36 | IPNPDOC ---
Subjective Date Seen The patient was seen on 04/25/19. Subjective Chief Complaint/HPI Patient is comfortable offers no new complaints. His heart rate at one time and went down to 29 Last night per nursing staff General: Denies: ROS Unobtainable, Chills, Night Sweats, Fatigue, Malaise, Normal Appetite, Other Symptoms Constitutional: Denies: Chills, Fever, Malaise, Night Sweats, Weakness, Fatigue, Weight Loss, Lethargy, Other Eyes: Denies: Pain, Vision change, Conjunctivae inflammation, Eyelid inflammation, Redness, Other ENT: Denies: Head Aches, Ear Pain, Dysphagia, Sinus Congestion, Post Nasal Drip, Sore Throat, Epistaxis, Other Symptoms Skin: Denies: Rash, Lesions, Jaundice, Bruising, Itching, Dry, Breakdown, Nail Changes, Other Pulmonary: Denies: Dyspnea, Cough, Pleuritic Chest Pain, Other Symptoms Cardiovascular: Denies: Chest Pain, Palpitations, Orthopnea, Paroxysmal Noc. Dyspnea, Edema, Lt Headedness, Other Symptoms Gastrointestinal: Denies: Nausea, Vomiting, Abdominal Pain, Diarrhea, Constipation, Melena, Hematochezia, Other Symptoms Genitourinary: Denies: Dysuria, Frequency, Incontinence, Hematuria, Retention, Other Symptoms Hematologic: Denies: Bruising, Bleeding Excessively, Petecchia, Purpura, Enlarged Lymph Nodes, Other Hematologic Endocrine: Denies: Polydipsia, Polyphagia, Polyuria, Heat Intolerance, Cold Intolerance, Other Endocrine Sx Musculoskeletal: Denies: Neck Pain, Back Pain, Shoulder Pain, Arm Pain, Hand Pain, Leg Pain, Foot Pain, Joint Pain, Muscle Pain, Spasms, Other Symptoms Neurological: Denies: Weakness, Numbness, Incoordination, Change in speech, Confusion, Seizures, Other Symptoms Objective Physical Examination General Exam: Positive: Alert, Cooperative, No Acute Distress Eye Exam: Positive: PERRLA, Conjunctiva & lids normal, EOMI ENT Exam: Positive: Atraumatic, Mucous membr. moist/pink, Pharynx Normal, Tongue Midline, Other ENT (poor dentition) Neck Exam: Positive: Supple, +2 carotid pulse wo bruit Chest Exam: Positive: Clear to auscultation, Normal air movement; Negative: Rales, Rhonchi, Wheezing Heart Exam: Positive: Bradycardic, Other (no murmur) Telemetry: Positive: Other Telemetry: (sinus alissa) Abdomen Exam: Positive: Normal bowel sounds, Soft (NT ND) Extremity Exam: Positive: Clubbing, Normal pulses, Other (no calf pain or swelling.); Negative: Cyanosis, Edema Skin Exam: Positive: Nl turgor and temperature Neuro Exam: Positive: Normal Speech, Normal Tone, Sensation Intact, Cranial Nerves 3-12 NL, Other (right leg/arm strength 4/5; left arm/leg strength 5/5; ) Psych Exam: Positive: Mental status NL, Memory Intact, Oriented x 3 Assessment /Plan Problems (1) Symptomatic bradycardia Status: Acute Problem Text: 49 yo male presents with his partner to ED for chest pain, dizziness, weakness since October 2018 but worsening over past 24 hours. He states today had severe chest pain, no radiation, no diaphoresis, no N, no vomiting, substernal, of unknown duration. nothing made it better or worse. Wax/wane. He states chronic SOB/CALLE at 50 feet. He states chornic right sided parathesia to arm/leg after his stroke in 10/2018. He states BP in Oct 212/130 and over last month BP 180/80. He states multiple medication adjustments over past 4-6 weeks made dizziness and weakness worse. He states his metoprolol was increased to 100mg and then over past week decreased back to 50mg. He states lisinopril has been increased to 30mg and he was taken off hydralazine. He has been using naproxen BID for for myalgia and arthalgia without relief. He states he just "doesn't feel good" and over past 3 days, took at 300mile non stop driving trip and went on a slow 2 mile walk which "wore me out" and had to stop to rest. On presentation to ED, he was found to be bradycardic (30-40 range), normotensive, and with increased creatinine (currently 2.0 with prior baseline 1.3). Symptoms most likely secondary to beta blockers Metipranolol is on hold , Heart rate is between 40 and 50 Continue monitoring for 24 more hours before discharge Wide chronotropic agents and discharged (2) Acute renal failure Status: Acute Problem Text: Most likely secondary to VIRAL inhibitors Lisinopril is on hold Function is already getting better IV fluids to be continued Repeat BUN/creatinine in a.m. Plan/VTE VTE Prophylaxis Ordered?: Yes VS, I&O, 24H, [facility] Vital Signs/I&O Vital Signs Date Time Temp Pulse Resp B/P (MAP) Pulse Ox O2 Delivery O2 Flow Rate FiO2 04/25/19 08:52 119/70 04/25/19 08:00 97.4 37 16 98 04/24/19 14:07 Room Air I&O- Last 24 Hours up to 6 AM 04/25/19 06:00 Intake Total 710 ml Output Total 1225 ml Balance -515 ml Laboratory Data 24H LABS Laboratory Tests 2 04/24/19 14:19: Immature Granulocyte % (Auto) 0.4, White Blood Count 7.6, Red Blood Count 4.63, Hemoglobin 14.8, Hematocrit 43.1, Mean Corpuscular Volume 93.1, Mean Corpuscular Hemoglobin 32.0, Mean Corpuscular Hemoglobin Concent 34.3, Red Cell Distribution Width 12.5, Platelet Count 273, Neutrophils (%) (Auto) 42.3, Lymphocytes (%) (Auto) 45.8H, Monocytes (%) (Auto) 9.3H, Eosinophils (%) (Auto) 1.2, Basophils (%) (Auto) 1.0, Neutrophils # (Auto) 3.2, Lymphocytes # (Auto) 3.5, Monocytes # (Auto) 0.7, Eosinophils # (Auto) 0.1, Basophils # (Auto) 0.1, Nucleated Red Blood Cells % (auto) 0.0, Anion Gap 8, Glomerular Filtration Rate 36.2L, Blood Urea Nitrogen 24H, Creatinine 2.07H, Sodium Level 141, Potassium Level 4.5, Chloride Level 108H, Carbon Dioxide Level 25, Calcium Level 9.5, Aspartate Amino Transf (AST/SGOT) 35, Alanine Aminotransferase (ALT/SGPT) 78, Alkaline Phosphatase 99, Total Bilirubin 0.3, Total Protein 7.2, Albumin 3.9, Albumin/Globulin Ratio 1.18 04/24/19 18:00: Total Creatine Kinase 125, Creatine Kinase MB 1.6, Creatine Kinase MB Relative Index 1.28, Troponin I 0.02 04/24/19 22:08: Troponin I < 0.02 04/25/19 05:31: Nucleated Red Blood Cells % (auto) 0.0, Anion Gap 4L, Glomerular Filtration Rate 56.9, Blood Urea Nitrogen 20H, Creatinine 1.40H, Sodium Level 142, Potassium Level 4.0, Chloride Level 115H, Carbon Dioxide Level 23, Calcium Level 8.9, Aspartate Amino Transf (AST/SGOT) 26, Alanine Aminotransferase (ALT/SGPT) 63, Alkaline Phosphatase 83, Total Bilirubin 0.7#, Total Protein 6.3L, Albumin 3.0#L, Albumin/Globulin Ratio 0.91L, Triglycerides Level 90, LDL Cholesterol 44, Magnesium Level 1.9, Total Cholesterol 93, Non-HDL Cholesterol (LDL + VLDL) 62, Total HDL Cholesterol 31L, Cholesterol/HDL Ratio 3.000 CBC/BMP Laboratory Tests 04/24/19 14:19 Red Blood Count 4.63, Mean Corpuscular Volume 93.1, Mean Corpuscular Hemoglobin 32.0, Mean Corpuscular Hemoglobin Concent 34.3, Red Cell Distribution Width 12.5, Neutrophils (%) (Auto) 42.3, Lymphocytes (%) (Auto) 45.8 H, Monocytes (%) (Auto) 9.3 H, Eosinophils (%) (Auto) 1.2, Basophils (%) (Auto) 1.0, Neutrophils # (Auto) 3.2, Lymphocytes # (Auto) 3.5, Monocytes # (Auto) 0.7, Eosinophils # (Auto) 0.1, Basophils # (Auto) 0.1, Calcium Level 9.5, Aspartate Amino Transf (AST/SGOT) 35, Alanine Aminotransferase (ALT/SGPT) 78, Alkaline Phosphatase 99, Total Bilirubin 0.3, Total Protein 7.2, Albumin 3.9 04/25/19 05:31 Red Blood Count 4.43, Mean Corpuscular Volume 92.1, Mean Corpuscular Hemoglobin 31.2, Mean Corpuscular Hemoglobin Concent 33.8, Red Cell Distribution Width 12.5, Calcium Level 8.9, Aspartate Amino Transf (AST/SGOT) 26, Alanine Aminotransferase (ALT/SGPT) 63, Alkaline Phosphatase 83, Total Bilirubin 0.7 #, Total Protein 6.3 L, Albumin 3.0 #L, Triglycerides Level 90, LDL Cholesterol 44 ORESTES MCALLISTER MD Apr 25, 2019 11:36
[2019-04-25] MEDS: ACETAMINOPHEN TAB 650MG DOSE (2X325MG) PO PRN (16:21)
[2019-04-25] MEDS: ATORVASTATIN 20 MG TAB PO SCH (21:46)
[2019-04-25] MEDS: SENNA 8.6 MG TAB (SENOKOT) PO SCH (21:46)
[2019-04-25] MEDS: ENOXAPARIN 40 MG/0.4 ML SYRINGE (J1650) SC SCH (21:46)
[2019-04-25] MEDS: hydrOXYzine 50 MG TAB PO SCH (21:47)
[2019-04-26] VITALS: BP 153/87
[2019-04-26 04:00] VITALS: BP 136/78
[2019-04-26] MEDS: NS 1,000 ML IV SCH ×2 (04:22→14:23)
[2019-04-26 06:19] LABS: HEMATOCRIT 38.6 % (42.0-52.0); HEMOGLOBIN 13.3 g/dl (13.5-17.5); MEAN CORPUSCULAR HEMOGLOBIN 31.7 pg (27.0-33.0); MEAN CORPUSCULAR HGB CONC 34.5 g/dl (32.0-36.5); MEAN CORPUSCULAR VOLUME 92.1 fl (80.0-96.0); PLATELET COUNT, AUTOMATED 219 10^3/uL (150-450); RED BLOOD COUNT 4.19 10^6/uL (4.30-6.10); WHITE BLOOD COUNT 6.7 10^3/uL (4.0-10.0)
[2019-04-26 07:05] LABS: ALBUMIN 2.9 GM/DL (3.2-5.2); BILIRUBIN,TOTAL 0.3 MG/DL (0.2-1.0); CALCIUM LEVEL 8.5 MG/DL (8.5-10.1); CREATININE FOR GFR 1.36 MG/DL (0.70-1.30); GLOMERULAR FILTRATION RATE 58.8 (>56); TOTAL PROTEIN 5.8 GM/DL (6.4-8.2)
[2019-04-26 08:00] VITALS: BP 148/82
[2019-04-26] MEDS: DOCUSATE SODIUM 100 MG CAP PO SCH ×2 (08:26→20:42)
[2019-04-26] MEDS: CLOPIDOGREL 75 MG TAB PO SCH (08:27)
[2019-04-26] MEDS: GABAPENTIN 300 MG CAP PO SCH ×2 (08:27→20:42)
[2019-04-26] MEDS: **hydrALAZINE** 50 MG TAB PO SCH ×2 (08:27→20:42)
[2019-04-26] MEDS: ASPIRIN 81 MG ENTERIC TAB PO SCH (08:27)
--- NOTE | 2019-04-26 10:36 | IPNPDOC ---
Subjective Date Seen The patient was seen on 04/26/19. Subjective Chief Complaint/HPI She'll comfortable in no distress during his sleep. His heart rate tends to go down to 30s. Otherwise, he is in 40s and 50s offers no new complaints at the present time General: Denies: ROS Unobtainable, Chills, Night Sweats, Fatigue, Malaise, Normal Appetite, Other Symptoms Constitutional: Denies: Chills, Fever, Malaise, Night Sweats, Weakness, Fatigue, Weight Loss, Lethargy, Other Eyes: Denies: Pain, Vision change, Conjunctivae inflammation, Eyelid inflammation, Redness, Other ENT: Denies: Head Aches, Ear Pain, Dysphagia, Sinus Congestion, Post Nasal Drip, Sore Throat, Epistaxis, Other Symptoms Skin: Denies: Rash, Lesions, Jaundice, Bruising, Itching, Dry, Breakdown, Nail Changes, Other Pulmonary: Denies: Dyspnea, Cough, Pleuritic Chest Pain, Other Symptoms Cardiovascular: Denies: Chest Pain, Palpitations, Orthopnea, Paroxysmal Noc. Dyspnea, Edema, Lt Headedness, Other Symptoms Gastrointestinal: Denies: Nausea, Vomiting, Abdominal Pain, Diarrhea, Consti pation, Melena, Hematochezia, Other Symptoms Musculoskeletal: Denies: Neck Pain, Back Pain, Shoulder Pain, Arm Pain, Hand Pain, Leg Pain, Foot Pain, Joint Pain, Muscle Pain, Spasms, Other Symptoms Neurological: Denies: Weakness, Numbness, Incoordination, Change in speech, Confusion, Seizures, Other Symptoms Psych: Denies: Mood Normal, Anxiety, Depression, Memory Issues, Thoughts of Self Harm, Anger, Thoughts of Harming Other, Other Psych Objective Physical Examination General Exam: Positive: Alert, Cooperative, No Acute Distress Eye Exam: Positive: PERRLA, Conjunctiva & lids normal, EOMI ENT Exam: Positive: Atraumatic, Mucous membr. moist/pink, Pharynx Normal, Tongue Midline, Other ENT (poor dentition) Neck Exam: Positive: Supple, +2 carotid pulse wo bruit Chest Exam: Positive: Clear to auscultation, Normal air movement; Negative: Rales, Rhonchi, Wheezing Heart Exam: Positive: Bradycardic, Other (no murmur) Telemetry: Positive: Other Telemetry: (sinus alissa) Abdomen Exam: Positive: Normal bowel sounds, Soft (NT ND) Extremity Exam: Positive: Clubbing, Normal pulses, Other (no calf pain or swell ing.); Negative: Cyanosis, Edema Skin Exam: Positive: Nl turgor and temperature Neuro Exam: Positive: Normal Speech, Normal Tone, Sensation Intact, Cranial Nerves 3-12 NL, Other (right leg/arm strength 4/5; left arm/leg strength 5/5; ) Psych Exam: Positive: Mental status NL, Memory Intact, Oriented x 3 Assessment /Plan Problems (1) Symptomatic bradycardia Status: Acute Problem Text: 49 yo male presents with his partner to ED for chest pain, dizziness, weakness since October 2018 but worsening over past 24 hours. He states today had severe chest pain, no radiation, no diaphoresis, no N, no vomiting, substernal, of unknown duration. nothing made it better or worse. Wax/wane. He states chronic SOB/CALLE at 50 feet. He states chornic right sided parathesia to arm/leg after his stroke in 10/2018. He states BP in Oct 212/130 and over last month BP 180/80. He states multiple medication adjustments over past 4-6 weeks made dizziness and weakness worse. He states his metoprolol was increased to 100mg and then over past week decreased back to 50mg. He states lisinopril has been increased to 30mg and he was taken off hydralazine. He has been using naproxen BID for for myalgia and arthalgia without relief. He states he just "doesn't feel good" and over past 3 days, took at 300mile non stop driving trip and went on a slow 2 mile walk which "wore me out" and had to stop to rest. On presentation to ED, he was found to be bradycardic (30-40 range), normotensive, and with increased creatinine (currently 2.0 with prior baseline 1.3). Symptoms most likely secondary to beta blockers Metipranolol is on hold His heart rate during sleep decreased the 30s, but during the day, it's between 40s and 50s His blood pressure is under well control His renal function was improving He possibly can be discharged home if the heart rate maintains about 40, and all the time (2) Acute renal failure Status: Acute Problem Text: Most likely secondary to VIRAL inhibitors Lisinopril is on hold Improving very well every day IV fluids to be continued Repeat BUN/creatinine in a.m. Plan/VTE VTE Prophylaxis Ordered?: Yes VS, I&O, 24H, Fishbone Vital Signs/I&O Vital Signs Date Time Temp Pulse Resp B/P (MAP) Pulse Ox O2 Delivery O2 Flow Rate FiO2 04/26/19 08:27 148/82 04/26/19 08:00 97.3 39 18 98 04/24/19 14:07 Room Air I&O- Last 24 Hours up to 6 AM 04/26/19 06:00 Intake Total 2780 ml Output Total 3035 ml Balance -255 ml Laboratory Data 24H LABS Laboratory Tests 2 04/26/19 05:36: Nucleated Red Blood Cells % (auto) 0.0, Anion Gap 6L, Glomerular Filtration Rate 58.8, Blood Urea Nitrogen 20H, Creatinine 1.36H, Sodium Level 144, Potassium Level 4.0, Chloride Level 115H, Carbon Dioxide Level 23, Calcium Level 8.5, Aspartate Amino Transf (AST/SGOT) 24, Alanine Aminotransferase (ALT/SGPT) 52, Alkaline Phosphatase 101, Total Bilirubin 0.3#, Total Protein 5.8L, Albumin 2.9L, Albumin/Globulin Ratio 1.00 CBC/BMP Laboratory Tests 04/26/19 05:36 Red Blood Count 4.19 L, Mean Corpuscular Volume 92.1, Mean Corpuscular Hemoglobin 31.7, Mean Corpuscular Hemoglobin Concent 34.5, Red Cell Distribution Width 12.4, Calcium Level 8.5, Aspartate Amino Transf (AST/SGOT) 24, Alanine Aminotransferase (ALT/SGPT) 52, Alkaline Phosphatase 101, Total Bilirubin 0.3 #, Total Protein 5.8 L, Albumin 2.9 L ORESTES MCALLISTER MD Apr 26, 2019 10:36
[2019-04-26 12:00] VITALS: BP 131/78
[2019-04-26 16:00] VITALS: BP 146/90
[2019-04-26 20:00] VITALS: BP 151/81
[2019-04-26] MEDS: ATORVASTATIN 20 MG TAB PO SCH (20:41)
[2019-04-26] MEDS: hydrOXYzine 50 MG TAB PO SCH (20:42)
[2019-04-26] MEDS: SENNA 8.6 MG TAB (SENOKOT) PO SCH (20:42)
[2019-04-26] MEDS: ENOXAPARIN 40 MG/0.4 ML SYRINGE (J1650) SC SCH (20:42)
[2019-04-27] VITALS: BP 140/82
[2019-04-27] MEDS: NS 1,000 ML IV SCH (00:30)
[2019-04-27 04:00] VITALS: BP 155/80
[2019-04-27 05:55] LABS: BLOOD UREA NITROGEN 17 MG/DL (7-18); CALCIUM LEVEL 8.1 MG/DL (8.5-10.1); CARBON DIOXIDE LEVEL 24 MEQ/L (21-32); CHLORIDE LEVEL 114 MEQ/L (98-107); GLOMERULAR FILTRATION RATE > 60.0 (>56); GLUCOSE, FASTING 94 MG/DL (70-100); POTASSIUM SERUM 3.8 MEQ/L (3.5-5.1); SODIUM LEVEL 143 MEQ/L (136-145)
[2019-04-27 08:00] VITALS: BP 135/80
[2019-04-27 08:47] VITALS: BP 135/80
[2019-04-27] MEDS: CLOPIDOGREL 75 MG TAB PO SCH (08:47)
[2019-04-27] MEDS: DOCUSATE SODIUM 100 MG CAP PO SCH (08:47)
[2019-04-27] MEDS: **hydrALAZINE** 50 MG TAB PO SCH (08:47)
[2019-04-27] MEDS: GABAPENTIN 300 MG CAP PO SCH (08:47)
[2019-04-27] MEDS: ASPIRIN 81 MG ENTERIC TAB PO SCH (08:47)
[2019-04-27] MEDS ORDERED: HYDR50TA PO (10:48)
[2019-04-27 12:00] VITALS: BP 164/96
--- NOTE | 2019-04-27 13:05 | DS.PDOC ---
Discharge Summary General Date of Admission Apr 24, 2019 at 15:54 Date of Discharge 04/27/19 Discharge Summary PROCEDURES PERFORMED DURING STAY: None. ADMITTING DIAGNOSES: 1. Sinus bradycardia, acute renal failure. DISCHARGE DIAGNOSES: 1. Adverse drug reaction, sinus bradycardia, acute renal failure. COMPLICATIONS/CHIEF COMPLAINT: Acute Renal Failure Symptomatic Bradycardia. HISTORY OF PRESENT ILLNESS: 49 yo male presents with his partner to ED for chest pain, dizziness, weakness since October 2018 but worsening over past 24 hours. He states today had severe chest pain, no radiation, no diaphoresis, no N, no vomiting, substernal, of unknown duration. nothing made it better or worse. Wax/wane. He states chronic SOB/CALLE at 50 feet. He states chornic right sided parathesia to arm/leg after his stroke in 10/2018. He states BP in Oct 212/130 and over last month BP 180/80. He states multiple medication adjustments over past 4-6 weeks made dizziness and weakness worse. He states his metoprolol was increased to 100mg and then over past week decreased back to 50mg. He states lisinopril has been increased to 30mg and he was taken off hydralazine. He has been using naproxen BID for for myalgia and arthalgia without relief. He states he just "doesn't feel good" and over past 3 days, took at 300mile non stop driving trip and went on a slow 2 mile walk which "wore me out" and had to stop to rest. On presentation to ED, he was found to be bradycardic (30-40 range), normotensive, and with increased creatinine (currently 2.0 with prior baseline 1.3).. HOSPITAL COURSE: Patient was admitted with the diagnosis of sinus bradycardia and acute renal failure. Patient has been recently increased on his metoprolol and his lisinopril. He was taking metoprolol tartrate 50 mg by mouth twice a day, and lisinopril 30 mg by mouth daily. Both medications were placed on hold and patient was admitted to monitored bed. Patient initially remained bradycardic but slowly. The heart rate improved to 40 and his renal function has progressively improved is within normal range now. His creatinine today is 1.3. Patient is still bradycardic during sleep, but he is completely asymptomatic and he was started on hydralazine for better blood pressure control. Patient follows up with cardiology and he will be discharged home off metoprolol and lisinopril and on hydralazine and he can follow with follow-up with his buttonholer in 2-3 days. Continue all other home medications. DISCHARGE MEDICATIONS: Please see below. ALLERGIES: Please see below. PHYSICAL EXAMINATION ON DISCHARGE: VITAL SIGNS: Please see below. GENERAL: Normal HEENT: PERRLA, supple NECK: Supple CARDIOVASCULAR EXAMINATION: S1, S2, regular RESPIRATORY EXAMINATION: Clear to A&P ABDOMINAL EXAMINATION: Benign EXTREMITIES: No clubbing, cyanosis, edema SKIN: Normal NEUROLOGICAL EXAMINATION: Normal PSYCHIATRIC EXAMINATION: Normal LABORATORY DATA: Please see below. IMAGING: PROGNOSIS: Good ACTIVITY: As tolerated. DIET: As tolerated DISCHARGE PLAN: Follow with buttonholer in 2-3 days DISPOSITION: . Home DISCHARGE INSTRUCTIONS: 1. As per discharge instructions. ITEMS TO FOLLOWUP ON ON OUTPATIENT: 1. Follow with cardiology in 2-3 days. DISCHARGE CONDITION: Stable. TIME SPENT ON DISCHARGE: 35 minutes. Vital Signs/I&Os Vital Signs Date Time Temp Pulse Resp B/P (MAP) Pulse Ox O2 Delivery O2 Flow Rate FiO2 04/27/19 12:00 98.2 53 16 164/96 (118) 100 04/24/19 14:07 Room Air I&O- Last 24 Hours up to 6 AM 04/27/19 06:00 Intake Total 3500 ml Output Total 2925 ml Balance 575 ml Laboratory Data Labs 24H Laboratory Tests 2 04/27/19 04:52: Anion Gap 5L, Glomerular Filtration Rate > 60.0, Blood Urea Nitrogen 17, Creatinine 1.30, Sodium Level 143, Potassium Level 3.8, Chloride Level 114H, Carbon Dioxide Level 24, Calcium Level 8.1L CBC/BMP Laboratory Tests 04/27/19 04:52 Calcium Level 8.1 L Discharge Medications Scheduled Amlodipine Besylate (Amlodipine Besylate) 10 Mg Tablet, 10 MG PO DAILY, (Reported) Aspirin (Aspir 81) 81 Mg Tablet.dr, 81 MG PO DAILY, (Reported) Atorvastatin Calcium (Atorvastatin Calcium) 80 Mg Tablet, 80 MG PO QHS, (Reported) Clopidogrel Bisulfate (Clopidogrel) 75 Mg Tablet, 75 MG PO DAILY, (Reported) Gabapentin (Gabapentin) 300 Mg Capsule, 300 MG PO BID, (Reported) Hydralazine HCl (Hydralazine HCl) 50 Mg Tablet, 50 MG PO BID Sennosides (Senna) 8.6 Mg Tablet, 17.2 MG PO QHS, (Reported) Scheduled PRN Hydroxyzine HCl (Hydroxyzine HCl) 50 Mg Tablet, 50 MG PO TID PRN for ANXIETY, (Reported) Naproxen (Naproxen) 500 Mg Tablet.dr, 500 MG PO TID PRN for PAIN, (Reported) Allergies Coded Allergies: No Known Allergies (Unverified , 07/18/18) ORESTES MCALLISTER MD Apr 27, 2019 13:05
== END 2019-04-27 13:11 | disposition home or self-care (01) | DRG 201 ==
LOC: M ED 14:06 → M ED INP 15:54 → M PCU 20:53
PROVIDERS: ADMIT Family Medicine; ATTEND Internal Medicine
DX: R00.1 Bradycardia, unspecified (principal); N17.9 Acute kidney failure, unspecified; I11.0 Hypertensive heart disease with heart failure; I69.351 Hemiplegia and hemiparesis following cerebral infarction affecting right dominant side; I50.9 Heart failure, unspecified; Z79.899 Other long term (current) drug therapy; Z79.82 Long term (current) use of aspirin; F17.200 Nicotine dependence, unspecified, uncomplicated

== ENCOUNTER 2019-04-30 12:19 | Outpatient (RCR) | payer OTHER ==
[~2019-04-30 12:19] MED LIST changes: +ASPI81TA85 PO; +ATOR80TA59 PO; +CLOP75TA2 PO; +GABA-843 PO; +HYDR1TAB33 PO; +HYDR50TA PO; +LISI-672 PO; +METO1TAB7 PO; +NAPR250T4 PO; +NAPR500T6 PO; +SENN-83 PO
== END 2019-05-09 ==
LOC: M PT 12:19
PROVIDERS: ATTEND Nurse Practitioner Family
DX: I63.9 Cerebral infarction, unspecified (principal)

== ENCOUNTER 2019-05-06 08:43 | Outpatient (RCR) | payer MEDICAID | END 2019-05-09 | LOC: M OUTALCOH 08:43 | PROVIDERS: ATTEND Psychiatry & Neurology Psychiatry | DX: F10.20 Alcohol dependence, uncomplicated (principal); F17.200 Nicotine dependence, unspecified, uncomplicated ==

== ENCOUNTER → 2019-05-27 | Outpatient (REF) | payer MEDICAID ==
[~2019-05-27] MED LIST changes: +DOCU100C16 PO; +HYDR100T PO; +MIRA3350 PO
[2019-05-27 20:15] LABS: BASO # 0.1 10^3/uL (0.0-0.2); BASO % 0.9 % (0.0-1.0); EOS # 0.1 10^3/uL (0.0-0.5); HEMATOCRIT 44.3 % (42.0-52.0); HEMOGLOBIN 14.4 g/dl (13.5-17.5); LYMPH # 2.4 10^3/uL (1.5-5.0); LYMPH % 34.9 % (24.0-44.0); MEAN CORPUSCULAR HEMOGLOBIN 31.2 pg (27.0-33.0); MEAN CORPUSCULAR HGB CONC 32.5 g/dl (32.0-36.5); MEAN CORPUSCULAR VOLUME 96.1 fl (80.0-96.0); MONO # 0.6 10^3/uL (0.0-0.8); MONO % 9.2 % (0.0-5.0); NEUTROPHILS # 3.7 10^3/uL (1.5-8.5); NEUTROPHILS % 53.7 % (36.0-66.0); PLATELET COUNT, AUTOMATED 321 10^3/uL (150-450); RED BLOOD COUNT 4.61 10^6/uL (4.30-6.10); WHITE BLOOD COUNT 6.9 10^3/uL (4.0-10.0)
[2019-05-27 20:34] LABS: ALBUMIN 3.9 GM/DL (3.2-5.2); BILIRUBIN,TOTAL 0.3 MG/DL (0.2-1.0); CALCIUM LEVEL 9.3 MG/DL (8.5-10.1); CHOLESTEROL RISK RATIO 2.122 (<5); CREATININE FOR GFR 1.43 MG/DL (0.70-1.30); GLOMERULAR FILTRATION RATE 55.5 (>56); MAGNESIUM LEVEL 1.9 MG/DL (1.8-2.4); TOTAL PROTEIN 7.1 GM/DL (6.4-8.2)
== END ==
LOC: M LAB REF 16:42
PROVIDERS: ATTEND Nurse Practitioner Family
DX: Z13.9 Encounter for screening, unspecified (principal)

== ENCOUNTER 2019-05-31 15:23 | Emergency (ER) | payer MEDICAID, OTHER ==
[~2019-05-31] VITALS: Ht 175.3 cm; Wt 71.2 kg
[2019-05-31 16:15] LABS: BASO # 0.1 10^3/uL (0.0-0.2); BASO % 0.8 % (0.0-1.0); EOS # 0.1 10^3/uL (0.0-0.5); EOS % 0.9 % (0.0-3.0); HEMATOCRIT 42.7 % (42.0-52.0); HEMOGLOBIN 14.6 g/dl (13.5-17.5); LYMPH # 2.7 10^3/uL (1.5-5.0); LYMPH % 31.8 % (24.0-44.0); MEAN CORPUSCULAR HEMOGLOBIN 31.9 pg (27.0-33.0); MEAN CORPUSCULAR HGB CONC 34.2 g/dl (32.0-36.5); MEAN CORPUSCULAR VOLUME 93.4 fl (80.0-96.0); MONO # 0.7 10^3/uL (0.0-0.8); MONO % 8.4 % (0.0-5.0); NEUTROPHILS % 57.9 % (36.0-66.0); PLATELET COUNT, AUTOMATED 300 10^3/uL (150-450); RED BLOOD COUNT 4.57 10^6/uL (4.30-6.10); WHITE BLOOD COUNT 8.6 10^3/uL (4.0-10.0)
[2019-05-31 16:36] LABS: ALBUMIN 3.8 GM/DL (3.2-5.2); ALT/SGPT 41 U/L (12-78); BILIRUBIN,DIRECT 0.1 MG/DL (0.0-0.2); BILIRUBIN,TOTAL 0.4 MG/DL (0.2-1.0); BLOOD UREA NITROGEN 19 MG/DL (7-18); CALCIUM LEVEL 8.9 MG/DL (8.5-10.1); CARBON DIOXIDE LEVEL 21 MEQ/L (21-32); CHLORIDE LEVEL 111 MEQ/L (98-107); CREATININE FOR GFR 1.29 MG/DL (0.70-1.30); GLOMERULAR FILTRATION RATE > 60.0 (>56); GLUCOSE, FASTING 79 MG/DL (70-100); POTASSIUM SERUM 4.3 MEQ/L (3.5-5.1); SODIUM LEVEL 141 MEQ/L (136-145); TOTAL PROTEIN 7.2 GM/DL (6.4-8.2)
[2019-05-31] MEDS ORDERED: BISACODYL 10 MG SUPP PR ONE (17:00)
[2019-05-31] MEDS ORDERED: ACETAMINOPHEN 325 MG TAB PO ONE (17:00)
[2019-05-31 18:32] VITALS: BP 147/93
--- NOTE | 2019-06-01 07:39 | REP ---
KUB ABDOMEN AND PELVIS: KUB film of abdomen and pelvis demonstrates normal bowel gas pattern. No dilated small bowel loops are seen and there is no evidence of obstruction. Phleboliths are seen in the pelvis. There are minor degenerative changes of the spine. IMPRESSION: Unremarkable bowel gas pattern. Electronically Signed by Paolo Maki MD 06/02/2019 09:47 A
== END 2019-05-31 18:33 | disposition home or self-care (01) ==
LOC: M ED 15:23
DX: K59.00 Constipation, unspecified (principal); Z79.899 Other long term (current) drug therapy; Z79.82 Long term (current) use of aspirin; Z79.01 Long term (current) use of anticoagulants; F17.210 Nicotine dependence, cigarettes, uncomplicated

== ENCOUNTER 2019-06-02 08:06 | Day surgery (SDC) | payer OTHER ==
[~2019-06-02] VITALS: Ht 175.3 cm; Wt 70.8 kg
[2019-06-02] MEDS ORDERED: LIDOCAINE 2% INJ 100 MG/5 ML SDV (FOR ANES.) As Ordered ONE (08:15)
[2019-06-02] MEDS ORDERED: PROPOFOL 200 MG/20 ML VIAL As Ordered ONE (08:15)
[2019-06-02] MEDS: NS 1,000 ML IV ONE (08:30)
--- NOTE | 2019-06-02 09:58 | ROOR ---
Patient Name: Paolo Diaz Procedure Date: 06/02/2019 9:16 AM Date of : 1970 Age: 49 Room: [facility] Gender: Male Note Status: Finalized Procedure: Colonoscopy Indications: Screening for colorectal malignant neoplasm Providers: Kalpesh Limon MD Referring MD: Lesli FLOYD NP Requesting Provider: Medicines: Monitored Anesthesia Care Complications: No immediate complications. Procedure: Pre-Anesthesia Assessment: - Prior to the procedure, a History and Physical was performed, and patient medications and allergies were reviewed. The patient is competent. The risks and benefits of the procedure and the sedation options and risks were discussed with the patient. All questions were answered and informed consent was obtained. Patient identification and proposed procedure were verified by the physician, the nurse and the anesthesiologist in the procedure room. Mental Status Examination: alert and oriented. Airway Examination: normal oropharyngeal airway and neck mobility. Respiratory Examination: clear to auscultation. CV Examination: normal. Prophylactic Antibiotics: The patient does not require prophylactic antibiotics. Prior Anticoagulants: The patient has taken Plavix (clopidogrel), last dose was day of procedure. ASA Grade Assessment: III - A patient with severe systemic disease. After reviewing the risks and benefits, the patient was deemed in satisfactory condition to undergo the procedure. The anesthesia plan was to use monitored anesthesia care (MAC). Immediately prior to administration of medications, the patient was re-assessed for adequacy to receive sedatives. The heart rate, respiratory rate, oxygen saturations, blood pressure, adequacy of pulmonary ventilation, and response to care were monitored throughout the procedure. The physical status of the patient was re-assessed after the procedure. The Colonoscope was introduced through the anus and advanced to the terminal ileum, with identification of the appendiceal orifice and IC valve. The colonoscopy was performed without difficulty. The patient tolerated the procedure well. The quality of the bowel preparation was good. The terminal ileum, ileocecal valve, appendiceal orifice, and rectum were photographed. Scope insertion time was 4 minutes. Scope withdrawal time was 10 minutes. The total duration of the procedure was 14 minutes. Findings: The perianal and digital rectal examinations were normal. The terminal ileum contained a few ten mm ulcers. No bleeding was present. No stigmata of recent bleeding were seen. Biopsies were taken with a cold forceps for histology. Verification of patient identification for the specimen was done by the physician and nurse using the patient's name, date and medical record number. Estimated blood loss was minimal. A 6 mm polyp was found in the ascending colon. The polyp was sessile. The polyp was removed with a cold snare. Resection and retrieval were complete. To close a defect after polypectomy, one hemostatic clip was successfully placed. There was no bleeding at the end of the procedure. Non-bleeding external and internal hemorrhoids were found during retroflexion. The hemorrhoids were large. Impression: - A few ulcers in the terminal ileum. Biopsied. - One 6 mm polyp in the ascending colon, removed with a cold snare. Resected and retrieved. Clip was placed. - Non-bleeding external and internal hemorrhoids. Recommendation: - Patient has a contact number available for emergencies. The signs and symptoms of potential delayed complications were discussed with the patient. Return to normal activities tomorrow. Written discharge instructions were provided to the patient. - High fiber diet. - Continue present medications. - Await pathology results. - Check Inflammatory bowel disease serology in 2 months. - Repeat colonoscopy in 5 years for surveillance based on pathology results. - Telephone GI clinic if symptomatic. - Return to GI clinic in [facility] (address [address] [place] [address], [address], [place], [facility]) in 4 -- 6 weeks. Please call GI clinic @ [phone] for apppointment date and time. - Return to primary care physician. Kalpesh Limon MD Kalpesh Limon MD 06/02/2019 9:58:10 AM Electronically signed by Kalpesh Limon MD Number of Addenda: 0 Note Initiated On: 06/02/2019 9:16 AM Estimated Blood Loss: Estimated blood loss was minimal.
[2019-06-02 10:20] VITALS: BP 151/86
== END 2019-06-02 10:36 | disposition home or self-care (01) ==
LOC: M OPP 08:06
PROVIDERS: ATTEND Internal Medicine Gastroenterology
DX: Z12.11 Encounter for screening for malignant neoplasm of colon (principal); K63.3 Ulcer of intestine; D12.2 Benign neoplasm of ascending colon; K64.8 Other hemorrhoids; I50.9 Heart failure, unspecified; F17.210 Nicotine dependence, cigarettes, uncomplicated; Z86.73 Personal history of transient ischemic attack (TIA), and cerebral infarction without residual deficits; Z79.82 Long term (current) use of aspirin; Z79.899 Other long term (current) drug therapy

== ENCOUNTER 2019-06-03 12:00 | Outpatient (RCR) | payer MEDICAID | END 2019-06-08 | LOC: M OUTALCOH 12:00 | PROVIDERS: ATTEND Psychiatry & Neurology Psychiatry | DX: F10.20 Alcohol dependence, uncomplicated (principal); F17.200 Nicotine dependence, unspecified, uncomplicated ==

== ENCOUNTER 2019-06-04 13:40 | Outpatient (RCR) | payer OTHER | END 2019-06-08 | LOC: M OT 13:40 | PROVIDERS: ATTEND Nurse Practitioner Family | DX: M25.511 Pain in right shoulder (principal); M79.604 Pain in right leg; M79.601 Pain in right arm; R20.2 Paresthesia of skin; Z86.73 Personal history of transient ischemic attack (TIA), and cerebral infarction without residual deficits ==

== ENCOUNTER 2019-06-23 15:38 | Emergency (ER) | payer OTHER ==
[~2019-06-23] VITALS: Ht 175.3 cm; Wt 69.5 kg
[2019-06-23] MEDS ORDERED: NS 1,000 ML IV ONE (16:45)
[2019-06-23 16:53] LABS: BASO # 0.1 10^3/uL (0.0-0.2); BASO % 0.4 % (0.0-1.0); EOS % 0.3 % (0.0-3.0); HEMATOCRIT 42.3 % (42.0-52.0); HEMOGLOBIN 14.3 g/dl (13.5-17.5); LYMPH # 1.6 10^3/uL (1.5-5.0); LYMPH % 10.7 % (24.0-44.0); MEAN CORPUSCULAR HEMOGLOBIN 31.8 pg (27.0-33.0); MEAN CORPUSCULAR HGB CONC 33.8 g/dl (32.0-36.5); MEAN CORPUSCULAR VOLUME 94.2 fl (80.0-96.0); MONO # 1.3 10^3/uL (0.0-0.8); MONO % 8.4 % (0.0-5.0); NEUTROPHILS # 11.9 10^3/uL (1.5-8.5); NEUTROPHILS % 79.9 % (36.0-66.0); PLATELET COUNT, AUTOMATED 355 10^3/uL (150-450); RED BLOOD COUNT 4.49 10^6/uL (4.30-6.10); WHITE BLOOD COUNT 14.9 10^3/uL (4.0-10.0)
[2019-06-23 17:06] LABS: ALBUMIN 3.4 GM/DL (3.2-5.2); ALT/SGPT 28 U/L (12-78); BILIRUBIN,DIRECT 0.2 MG/DL (0.0-0.2); BILIRUBIN,TOTAL 0.6 MG/DL (0.2-1.0); BLOOD UREA NITROGEN 15 MG/DL (7-18); CALCIUM LEVEL 9.1 MG/DL (8.5-10.1); CARBON DIOXIDE LEVEL 26 MEQ/L (21-32); CHLORIDE LEVEL 109 MEQ/L (98-107); CPK CREATINE PHOSPHOKINASE 95 U/L (39-308); CREATININE FOR GFR 1.47 MG/DL (0.70-1.30); GLOMERULAR FILTRATION RATE 53.8 (>56); GLUCOSE, FASTING 93 MG/DL (70-100); LIPASE 164 U/L (73-393); MB/CK RELATIVE INDEX 1.05 (< OR =4); POTASSIUM SERUM 3.9 MEQ/L (3.5-5.1); SODIUM LEVEL 140 MEQ/L (136-145); TOTAL PROTEIN 7.7 GM/DL (6.4-8.2); TROPONIN I < 0.02 NG/ML (< 0.10)
[2019-06-23] MEDS ORDERED: IPRATROPIUM 0.5MG/ALBUTEROL 2.5MG INH SOL UD 3ML (DUONEB)(J7620) NEB ONE (17:15)
[2019-06-23] MEDS ORDERED: IBUPROFEN 600 MG TAB PO ONE (17:15)
[2019-06-23 17:43] LABS: INFLUENZA A AMPLIFICATION NEGATIVE (NEGATIVE); INFLUENZA B AMPLIFICATION NEGATIVE (NEGATIVE)
[2019-06-23] MEDS ORDERED: DOXY100C37 PO (18:33)
[2019-06-23] MEDS ORDERED: PROAAER10 INH (18:33)
[2019-06-23] MEDS ORDERED: TESS100C PO (18:33)
--- NOTE | 2019-06-23 18:40 | REP ---
REASON FOR EXAM: Chest pain. COMPARISON: EXAMINATION: 04/24/2019, a portable exam. FINDINGS: The superior mediastinal structures are midline. The cardiac silhouette is unremarkable in size, shape, and position. The diaphragmatic surfaces of the lungs are regular, and the costophrenic angles are clear. The pulmonary young are clear. The imaged osseous structures are intact. The left anterior chest wall implantable device is unchanged. IMPRESSION: There is no acute cardiopulmonary disease. Electronically Signed by Rosendo Santos DO 06/23/2019 07:28 P
[2019-06-23 18:42] VITALS: BP 125/77
--- NOTE | 2019-06-25 16:57 | ECGEPIP ---
[facility] Test Date: 2019-06-23 Pat Name: SAUNDRA VENTURA Department: Room: - Gender: Male [employer]ill [employer] Helper: SHANNON : 1970 Requested By: DANI BUNDY Order Number: [id number] Reading MD: Ramona Flores Measurements Intervals [place] Rate: 59 P: 33 NC: 140 QRS: 66 QRSD: 98 T: 17 QT: 419 QTc: 416 Interpretive Statements SINUS BRADYCARDIA ST & T-WAVE ABNORMALITY with ST DEPRESSION SIMILAR TO 04/24/19 PRWP Electronically Signed on 06-25-2019 16:56:48 EDT by Ramona Flores
== END 2019-06-23 18:44 | disposition home or self-care (01) ==
LOC: M ED 15:38
DX: J20.9 Acute bronchitis, unspecified (principal); I10 Essential (primary) hypertension; J45.909 Unspecified asthma, uncomplicated; Z86.73 Personal history of transient ischemic attack (TIA), and cerebral infarction without residual deficits; F17.218 Nicotine dependence, cigarettes, with other nicotine-induced disorders

== ENCOUNTER → 2019-09-23 | Outpatient (REF) | payer OTHER, SELFPAY ==
[~2019-09-23] MED LIST changes: +DOXY100C37 PO; +PROAAER10 INH; +TESS100C PO
[2019-09-23 18:04] LABS: BASO # 0.1 10^3/uL (0.0-0.2); BASO % 1.1 % (0.0-1.0); EOS # 0.2 10^3/uL (0.0-0.5); EOS % 2.2 % (0.0-3.0); HEMATOCRIT 43.9 % (42.0-52.0); HEMOGLOBIN 13.9 g/dl (13.5-17.5); MEAN CORPUSCULAR HEMOGLOBIN 29.6 pg (27.0-33.0); MEAN CORPUSCULAR HGB CONC 31.7 g/dl (32.0-36.5); MEAN CORPUSCULAR VOLUME 93.4 fl (80.0-96.0); MONO # 0.6 10^3/uL (0.0-0.8); MONO % 8.5 % (0.0-5.0); NEUTROPHILS # 3.3 10^3/uL (1.5-8.5); NEUTROPHILS % 46.1 % (36.0-66.0); PLATELET COUNT, AUTOMATED 297 10^3/uL (150-450); WHITE BLOOD COUNT 7.2 10^3/uL (4.0-10.0)
[2019-09-23 18:38] LABS: ALBUMIN 3.5 GM/DL (3.2-5.2); BILIRUBIN,TOTAL 0.2 MG/DL (0.2-1.0); CALCIUM LEVEL 8.7 MG/DL (8.5-10.1); CHOLESTEROL RISK RATIO 2.972 (<5); CREATININE FOR GFR 1.36 MG/DL (0.70-1.30); GLOMERULAR FILTRATION RATE 58.8 (>56); POTASSIUM SERUM 4.6 MEQ/L (3.5-5.1); TOTAL PROTEIN 6.6 GM/DL (6.4-8.2)
== END ==
LOC: M LAB REF 17:46
PROVIDERS: ATTEND Nurse Practitioner Family
DX: I11.9 Hypertensive heart disease without heart failure (principal); I50.9 Heart failure, unspecified

== ENCOUNTER → 2020-01-27 | Outpatient (REF) | payer SELFPAY ==
[~2020-01-27] MED LIST changes: -LISI-672 PO; +LISI30TA4 PO
[2020-01-27 13:52] LABS: BASO # 0.1 10^3/uL (0.0-0.2); BASO % 0.8 % (0.0-1.0); EOS # 0.2 10^3/uL (0.0-0.5); EOS % 1.6 % (0.0-3.0); HEMATOCRIT 42.8 % (42.0-52.0); HEMOGLOBIN 14.3 g/dl (13.5-17.5); LYMPH # 3.9 10^3/uL (1.5-5.0); LYMPH % 36.1 % (24.0-44.0); MEAN CORPUSCULAR HEMOGLOBIN 31.3 pg (27.0-33.0); MEAN CORPUSCULAR HGB CONC 33.4 g/dl (32.0-36.5); MEAN CORPUSCULAR VOLUME 93.7 fl (80.0-96.0); MONO # 0.8 10^3/uL (0.0-0.8); MONO % 7.1 % (0.0-5.0); NEUTROPHILS # 5.9 10^3/uL (1.5-8.5); NEUTROPHILS % 54.2 % (36.0-66.0); PLATELET COUNT, AUTOMATED 308 10^3/uL (150-450); RED BLOOD COUNT 4.57 10^6/uL (4.30-6.10); WHITE BLOOD COUNT 10.9 10^3/uL (4.0-10.0)
[2020-01-27 14:02] LABS: ALBUMIN 3.6 GM/DL (3.2-5.2); BILIRUBIN,TOTAL 0.3 MG/DL (0.2-1.0); CALCIUM LEVEL 9.1 MG/DL (8.5-10.1); CHOLESTEROL RISK RATIO 3.171 (<5); CREATININE FOR GFR 1.53 MG/DL (0.70-1.30); GLOMERULAR FILTRATION RATE 51.3 (>56); POTASSIUM SERUM 4.1 MEQ/L (3.5-5.1); TOTAL PROTEIN 6.6 GM/DL (6.4-8.2)
== END ==
LOC: M LAB REF 13:11
PROVIDERS: ATTEND Nurse Practitioner Family
DX: Z13.9 Encounter for screening, unspecified (principal); I50.9 Heart failure, unspecified; F17.210 Nicotine dependence, cigarettes, uncomplicated; I10 Essential (primary) hypertension

== ENCOUNTER → 2020-02-10 | Outpatient (REF) | payer OTHER, SELFPAY ==
[2020-02-10 17:11] LABS: BASO # 0.1 10^3/uL (0.0-0.2); EOS # 0.2 10^3/uL (0.0-0.5); EOS % 1.7 % (0.0-3.0); HEMOGLOBIN 13.8 g/dl (13.5-17.5); LYMPH # 2.8 10^3/uL (1.5-5.0); LYMPH % 31.2 % (24.0-44.0); MEAN CORPUSCULAR HGB CONC 32.9 g/dl (32.0-36.5); MEAN CORPUSCULAR VOLUME 91.3 fl (80.0-96.0); MONO # 0.7 10^3/uL (0.0-0.8); MONO % 7.6 % (0.0-5.0); NEUTROPHILS # 5.1 10^3/uL (1.5-8.5); NEUTROPHILS % 58.3 % (36.0-66.0); PLATELET COUNT, AUTOMATED 277 10^3/uL (150-450); WHITE BLOOD COUNT 8.8 10^3/uL (4.0-10.0)
[2020-02-10 17:23] LABS: ALBUMIN 3.5 GM/DL (3.2-5.2); BILIRUBIN,TOTAL 0.3 MG/DL (0.2-1.0); CALCIUM LEVEL 8.8 MG/DL (8.5-10.1); CREATININE FOR GFR 1.46 MG/DL (0.70-1.30); GLOMERULAR FILTRATION RATE 54.2 (>56); POTASSIUM SERUM 4.2 MEQ/L (3.5-5.1); TOTAL PROTEIN 6.6 GM/DL (6.4-8.2)
== END ==
LOC: M LAB REF 16:07
PROVIDERS: ATTEND Nurse Practitioner Family
DX: N17.9 Acute kidney failure, unspecified (principal)

== ENCOUNTER → 2020-06-07 | Outpatient (REF) | payer SELFPAY ==
[~2020-06-07] MED LIST changes: -AMLO10TA5 PO; +AMLO1TAB25 PO; -ASPI81TA85 PO; +ASPI81TA86 PO
[2020-06-07 18:19] LABS: BASO # 0.1 10^3/uL (0.0-0.2); BASO % 1.1 % (0.0-1.0); EOS # 0.1 10^3/uL (0.0-0.5); EOS % 1.1 % (0.0-3.0); HEMATOCRIT 38.5 % (42.0-52.0); HEMOGLOBIN 12.7 g/dl (13.5-17.5); LYMPH # 2.8 10^3/uL (1.5-5.0); LYMPH % 38.9 % (24.0-44.0); MEAN CORPUSCULAR HEMOGLOBIN 30.5 pg (27.0-33.0); MEAN CORPUSCULAR VOLUME 92.3 fl (80.0-96.0); MONO # 0.5 10^3/uL (0.0-0.8); MONO % 7.3 % (0.0-5.0); NEUTROPHILS # 3.7 10^3/uL (1.5-8.5); NEUTROPHILS % 51.3 % (36.0-66.0); PLATELET COUNT, AUTOMATED 274 10^3/uL (150-450); RED BLOOD COUNT 4.17 10^6/uL (4.30-6.10); WHITE BLOOD COUNT 7.1 10^3/uL (4.0-10.0)
[2020-06-07 18:48] LABS: APPEARANCE, URINE CLEAR (CLEAR); BACTERIA, URINE AUTO NEGATIVE (NEGATIVE); BILIRUBIN, URINE AUTO NEGATIVE (NEGATIVE); BLOOD, URINE BLOOD NEGATIVE (NEGATIVE); COLOR, URINE YELLOW (YELLOW); GLUCOSE, URINE (UA) AUTO NEGATIVE (NEGATIVE); KETONE, URINE AUTO NEGATIVE (NEGATIVE); LEUKOCYTE ESTERASE, URINE AUTO NEGATIVE (NEGATIVE); NITRITE, URINE AUTO NEGATIVE (NEGATIVE); PROTEIN, URINE AUTO NEGATIVE (NEGATIVE); RBC, URINE AUTO 0 /HPF (0-3); SPECIFIC GRAVITY URINE AUTO 1.012 (1.002-1.035); SQUAMOUS EPITHELIAL CELL UR AU 0 /HPF (0-6); UROBILINOGEN, URINE AUTO 0.2 mg/dL (0.0-2.0); WBC, URINE AUTO 0 /HPF (0-3)
[2020-06-07 19:02] LABS: HEMOGLOBIN A1c 5.4 %
[2020-06-07 19:08] LABS: ALBUMIN 3.7 GM/DL (3.2-5.2); BILIRUBIN,TOTAL 0.4 MG/DL (0.2-1.0); CALCIUM LEVEL 9.4 MG/DL (8.5-10.1); CHOLESTEROL RISK RATIO 2.187 (<5); CREATININE FOR GFR 1.36 MG/DL (0.70-1.30); GLOMERULAR FILTRATION RATE 58.6 (>56); POTASSIUM SERUM 4.6 MEQ/L (3.5-5.1)
== END ==
LOC: M LAB REF 17:57
PROVIDERS: ATTEND Nurse Practitioner Family
DX: N17.9 Acute kidney failure, unspecified (principal); F12.20 Cannabis dependence, uncomplicated; M25.561 Pain in right knee; Z13.9 Encounter for screening, unspecified; G47.00 Insomnia, unspecified; I50.9 Heart failure, unspecified; F17.210 Nicotine dependence, cigarettes, uncomplicated; I11.0 Hypertensive heart disease with heart failure

== ENCOUNTER → 2020-12-05 | Outpatient (REF) | payer OTHER, SELFPAY ==
[~2020-12-05] MED LIST changes: +GABA-282 PO; -GABA-843 PO; +NAPR-849 PO; -NAPR250T4 PO
[2020-12-05 12:20] LABS: BASO # 0.1 10^3/uL (0.0-0.2); BASO % 1.1 % (0.0-1.0); EOS # 0.2 10^3/uL (0.0-0.5); EOS % 1.8 % (0.0-3.0); HEMATOCRIT 42.8 % (42.0-52.0); LYMPH # 3.9 10^3/uL (1.5-5.0); LYMPH % 40.2 % (24.0-44.0); MEAN CORPUSCULAR HEMOGLOBIN 30.4 pg (27.0-33.0); MEAN CORPUSCULAR HGB CONC 32.7 g/dl (32.0-36.5); MONO # 0.7 10^3/uL (0.0-0.8); MONO % 7.1 % (2.0-8.0); NEUTROPHILS # 4.9 10^3/uL (1.5-8.5); NEUTROPHILS % 49.6 % (36.0-66.0); PLATELET COUNT, AUTOMATED 299 10^3/uL (150-450); WHITE BLOOD COUNT 9.8 10^3/uL (4.0-10.0)
[2020-12-05 12:58] LABS: ALBUMIN 3.5 GM/DL (3.2-5.2); ALT/SGPT 26 U/L (12-78); BILIRUBIN,TOTAL 0.2 MG/DL (0.2-1.0); BLOOD UREA NITROGEN 12 MG/DL (7-18); CALCIUM LEVEL 8.7 MG/DL (8.5-10.1); CARBON DIOXIDE LEVEL 28 MEQ/L (21-32); CHLORIDE LEVEL 110 MEQ/L (98-107); CHOLESTEROL LEVEL 96 MG/DL (<200); CHOLESTEROL RISK RATIO 3.096 (<5); CREATININE FOR GFR 1.28 MG/DL (0.70-1.30); FERRITIN 99 NG/ML (26-388); FOLATE 10.3 NG/ML (>5.4); FREE T4 0.94 NG/DL (0.76-1.46); GLOMERULAR FILTRATION RATE > 60.0 (>56); GLUCOSE, FASTING 92 MG/DL (70-100); HDL CHOLESTEROL 31 MG/DL (>40); IRON (FE) 43 UG/DL (65-175); LDL CHOLESTEROL 46 MG/DL (<100); MAGNESIUM LEVEL 1.7 MG/DL (1.8-2.4); NON-HDL-C 65 MG/DL; POTASSIUM SERUM 4.2 MEQ/L (3.5-5.1); SODIUM LEVEL 142 MEQ/L (136-145); TOTAL 25(OH) VITAMIN D 16.2 NG/ML (30.0-100.0); TOTAL IRON BINDING CAPACITY 226 UG/DL (250-450); TOTAL PROTEIN 6.4 GM/DL (6.4-8.2); TRIGLYCERIDES LEVEL 96 MG/DL (<150); VITAMIN B12 LEVEL 598 PG/ML (247-911)
[2020-12-05 13:21] LABS: HEMOGLOBIN A1c 5.4 %
[2020-12-07 00:06] LABS: PSA TOTAL 0.6 ng/mL (0.0-4.0)
== END ==
LOC: M LAB REF 11:41
PROVIDERS: ATTEND Nurse Practitioner Family
DX: E78.5 Hyperlipidemia, unspecified (principal); K59.00 Constipation, unspecified; I10 Essential (primary) hypertension; F17.200 Nicotine dependence, unspecified, uncomplicated

== ENCOUNTER 2021-03-06 22:56 | Emergency (ER) | payer SELFPAY ==
[~2021-03-06] VITALS: Ht 175.3 cm; Wt 72.6 kg
[2021-03-06 22:56] VITALS: BP 148/95
[~2021-03-06 22:56] MED LIST changes: -DOXY100C37 PO; +DOXY1CAP62 PO
[2021-03-06] MEDS ORDERED: FERR1TAB8 PO (23:06)
[2021-03-07] MEDS ORDERED: IBUP80TA PO (03:04)
[2021-03-07] MEDS ORDERED: AUGM875T28 PO (03:04)
[2021-03-07] MEDS ORDERED: AUGMENTIN 875 MG TAB PO ONE (03:05)
[2021-03-07] MEDS ORDERED: OXYCODONE/APAP 5MG/325MG(BULK FOR ED) 1 TABLET PO ONE (03:05)
[2021-03-07] MEDS ORDERED: KETOROLAC 60MG 2ML VIAL IM ONE (03:05)
== END 2021-03-07 03:51 | disposition home or self-care (01) ==
LOC: M ED 22:56
DX: K04.7 Periapical abscess without sinus (principal); F17.200 Nicotine dependence, unspecified, uncomplicated; I50.9 Heart failure, unspecified
CPT/HCPCS: 96372; 99282; J1885

== ENCOUNTER 2022-04-22 19:03 | Emergency (ER) | payer MEDICARE ==
[~2022-04-22] VITALS: Ht 175.3 cm; Wt 67.0 kg
[2022-04-22 19:03] VITALS: BP 123/71
[~2022-04-22 19:03] MED LIST changes: +AUGM875T28 PO; +DOXY-443 PO; -DOXY1CAP62 PO; +FERR1TAB8 PO; +IBUP80TA PO
[2022-04-22] MEDS ORDERED: FISH1000 PO (19:19)
== END 2022-04-22 21:16 | disposition left against medical advice (07) ==
LOC: M ED 19:03
DX: Z53.21 Procedure and treatment not carried out due to patient leaving prior to being seen by health care provider (principal)

== ENCOUNTER → 2022-05-11 | Outpatient (CLI) | payer MEDICARE ==
[~2022-05-11] MED LIST changes: +FISH1000 PO
== END ==
LOC: M WUC 15:42
PROVIDERS: ATTEND Nurse Practitioner Family
DX: M54.2 Cervicalgia (principal); M25.519 Pain in unspecified shoulder

== ENCOUNTER → 2023-01-15 | Outpatient (REF) | payer MEDICARE ==
[2023-01-15 17:19] LABS: BASO # 0.1 10^3/uL (0.0-0.2); BASO % 1.2 % (0.0-1.0); EOS # 0.1 10^3/uL (0.0-0.5); HEMATOCRIT 45.6 % (42.0-52.0); HEMOGLOBIN 14.9 g/dl (13.5-17.5); LYMPH # 2.9 10^3/uL (1.5-5.0); LYMPH % 37.1 % (24.0-44.0); MEAN CORPUSCULAR HEMOGLOBIN 31.5 pg (27.0-33.0); MEAN CORPUSCULAR HGB CONC 32.7 g/dl (32.0-36.5); MEAN CORPUSCULAR VOLUME 96.4 fl (80.0-96.0); MONO # 0.6 10^3/uL (0.0-0.8); MONO % 7.5 % (2.0-8.0); NEUTROPHILS # 4.1 10^3/uL (1.5-8.5); NEUTROPHILS % 53.1 % (36.0-66.0); PLATELET COUNT, AUTOMATED 324 10^3/uL (150-450); RED BLOOD COUNT 4.73 10^6/uL (4.30-6.10); WHITE BLOOD COUNT 7.7 10^3/uL (4.0-10.0)
[2023-01-15 17:42] LABS: ALBUMIN 3.9 G/DL (3.2-5.2); ALKALINE PHOSPHATASE 96 U/L (46-116); ALT/SGPT 28 U/L (7.0-40); AST/SGOT 24 U/L (<34); BILIRUBIN,TOTAL 0.3 MG/DL (0.3-1.2); BLOOD UREA NITROGEN 13 MG/DL (9-23); CALCIUM LEVEL 9.3 MG/DL (8.5-10.1); CARBON DIOXIDE LEVEL 29 MMOL/L (20-31); CHLORIDE LEVEL 110 MMOL/L (98-107); CHOLESTEROL LEVEL 110 MG/DL (<200); CHOLESTEROL RISK RATIO 2.53 (<5); CREATININE FOR GFR 1.27 MG/DL (0.70-1.30); GLOMERULAR FILTRATION RATE > 60.0 (>56); GLUCOSE, FASTING 132 MG/DL (60-100); HDL CHOLESTEROL 43.4 MG/DL (>40); NON-HDL-C 66.6 MG/DL; POTASSIUM SERUM 4.7 MMOL/L (3.5-5.1); SODIUM LEVEL 139 MMOL/L (136-145); TOTAL PROTEIN 7.1 G/DL (5.7-8.2); TRIGLYCERIDES LEVEL 68 MG/DL (<150)
[2023-01-15 17:43] LABS: THYROID STIMULATING HORMONE 1.542 uIU/ML (0.55-4.78)
[2023-01-15 17:44] LABS: TOTAL 25(OH) VITAMIN D 46.5 NG/ML (20.0-100.0)
[2023-01-15 17:53] LABS: HEMOGLOBIN A1c 5.3 % (4.0-6.0)
== END ==
LOC: M LAB REF 16:37
PROVIDERS: ATTEND Nurse Practitioner Family
DX: Z13.228 Encounter for screening for other metabolic disorders (principal); Z79.899 Other long term (current) drug therapy

== ENCOUNTER 2024-03-21 23:07 | Emergency (ER) | payer MEDICARE, MEDICAID ==
[~2024-03-21] VITALS: Ht 175.3 cm; Wt 60.0 kg
[~2024-03-21 23:07] MED LIST changes: +DOXY-323 PO; -DOXY-443 PO; -HYDR-3911 PO; -HYDR50TA PO; +HYDR50TA46 PO; +HYDR50TA47 PO
[2024-03-22 00:09] LABS: ERYTHROCYTE SEDIMENTATION RATE 21 mm/hr (0-20)
[2024-03-22 00:16] LABS: INR 1.41; PROTHROMBIN TIME 16.8 SECONDS (12.5-14.5)
[2024-03-22 00:30] LABS: BLOOD UREA NITROGEN 8 MG/DL (9-23); CARBON DIOXIDE LEVEL 29 MMOL/L (20-31); CHLORIDE LEVEL 106 MMOL/L (98-107); CREATININE FOR GFR 1.17 MG/DL (0.70-1.30); GLOMERULAR FILTRATION RATE > 60.0 (>56); GLUCOSE, FASTING 78 MG/DL (60-100); SODIUM LEVEL 138 MMOL/L (136-145)
[2024-03-22 00:40] LABS: BASO # 0.1 10^3/uL (0.0-0.2); BASO % 0.9 % (0.0-1.0); EOS % 0.3 % (0.0-3.0); HEMATOCRIT 38.6 % (42.0-52.0); HEMOGLOBIN 12.9 g/dl (13.5-17.5); LYMPH # 2.6 10^3/uL (1.5-5.0); LYMPH % 32.9 % (24.0-44.0); MEAN CORPUSCULAR HEMOGLOBIN 31.5 pg (27.0-33.0); MEAN CORPUSCULAR HGB CONC 33.4 g/dl (32.0-36.5); MEAN CORPUSCULAR VOLUME 94.1 fl (80.0-96.0); MONO # 0.6 10^3/uL (0.0-0.8); NEUTROPHILS # 4.5 10^3/uL (1.5-8.5); NEUTROPHILS % 57.8 % (36.0-66.0); PLATELET COUNT, AUTOMATED 277 10^3/uL (150-450); WHITE BLOOD COUNT 7.8 10^3/uL (4.0-10.0)
[2024-03-22] MEDS ORDERED: TRAZ-252 PO (01:14)
[2024-03-22] MEDS ORDERED: ELIQ5TAB PO (01:14)
[2024-03-22] MEDS ORDERED: PERC5TAB12 PO (04:58)
[2024-03-22 05:07] VITALS: TEMP 97.7
[2024-03-22] MEDS: PERCOCET 5MG/325MG TAB PO ONE (05:19)
[2024-03-22 05:42] VITALS: BP 126/71; O2SAT 98
== END 2024-03-22 05:30 | disposition home or self-care (01) ==
LOC: M ED 23:07
DX: M66.0 Rupture of popliteal cyst (principal); R00.1 Bradycardia, unspecified; I10 Essential (primary) hypertension; E78.5 Hyperlipidemia, unspecified; F41.9 Anxiety disorder, unspecified; Z86.79 Personal history of other diseases of the circulatory system; Z79.52 Long term (current) use of systemic steroids; Z79.82 Long term (current) use of aspirin; Z79.02 Long term (current) use of antithrombotics/antiplatelets; Z79.01 Long term (current) use of anticoagulants; Z79.899 Other long term (current) drug therapy

== ENCOUNTER 2025-01-06 18:50 | Emergency (ER) | payer MEDICARE, MEDICAID ==
[~2025-01-06] VITALS: Ht 175.3 cm; Wt 60.5 kg
[~2025-01-06 18:50] MED LIST changes: -DOXY-323 PO; +DOXY-441 PO; +ELIQ5TAB PO; +GABA-1172 PO; -GABA-282 PO; +NAPR-1405 PO; -NAPR500T6 PO; +PERC5TAB12 PO; +SENN-187 PO; -SENN-83 PO; +TRAZ-252 PO
[2025-01-06] MEDS: ONDANSETRON 4MG 2ML VIAL IV ONE (19:57)
[2025-01-06] MEDS: PANTOPRAZOLE 40MG VIAL IV ONE (19:57)
[2025-01-06] MEDS: NS (Normal Saline) 0.9% 1,000 ML IV ONE (20:02)
[2025-01-06 20:14] LABS: BASO # 0.1 10^3/uL (0.0-0.2); BASO % 0.9 % (0.0-1.0); EOS % 0.3 % (0.0-3.0); HEMATOCRIT 45.9 % (42.0-52.0); HEMOGLOBIN 15.6 g/dl (13.5-17.5); LYMPH # 2.5 10^3/uL (1.5-5.0); LYMPH % 38.9 % (24.0-44.0); MEAN CORPUSCULAR HEMOGLOBIN 32.2 pg (27.0-33.0); MEAN CORPUSCULAR VOLUME 94.6 fl (80.0-96.0); MONO # 0.5 10^3/uL (0.0-0.8); MONO % 7.7 % (2.0-8.0); NEUTROPHILS # 3.3 10^3/uL (1.5-8.5); PLATELET COUNT, AUTOMATED 315 10^3/uL (150-450); RED BLOOD COUNT 4.85 10^6/uL (4.30-6.10); WHITE BLOOD COUNT 6.4 10^3/uL (4.0-10.0)
[2025-01-06 20:27] LABS: INR 1.24; PARTIAL THROMBOPLASTIN TIME 33.2 SECONDS (24.8-34.2); PROTHROMBIN TIME 15.9 SECONDS (12.5-14.5)
[2025-01-06 20:50] LABS: ALBUMIN 4.1 G/DL (3.2-5.2); BILIRUBIN,DIRECT 0.2 MG/DL (<0.4); BILIRUBIN,TOTAL 0.5 MG/DL (0.3-1.2); TOTAL PROTEIN 7.5 G/DL (5.7-8.2)
[2025-01-06] MEDS ORDERED: ISOVUE-370 76% 100 ML VIAL As Ordered ONE (21:13)
[2025-01-06] MEDS: POTASSIUM CHLORIDE 10MEQ SR TABLET PO ONE (21:59)
[2025-01-06] MEDS ORDERED: TRAZ-252 PO (22:55)
[2025-01-06] MEDS ORDERED: PROT1TAB2 PO (22:55)
[2025-01-06] MEDS ORDERED: ONDA-282 PO (22:55)
[2025-01-06 23:16] VITALS: BP 152/77; TEMP 98; O2SAT 97
== END 2025-01-06 23:26 | disposition home or self-care (01) ==
LOC: M ED 18:50
DX: R11.2 Nausea with vomiting, unspecified (principal); F41.9 Anxiety disorder, unspecified; J44.9 Chronic obstructive pulmonary disease, unspecified; E87.6 Hypokalemia; R00.1 Bradycardia, unspecified; J98.11 Atelectasis; F17.200 Nicotine dependence, unspecified, uncomplicated; Z79.52 Long term (current) use of systemic steroids; Z79.01 Long term (current) use of anticoagulants; Z79.82 Long term (current) use of aspirin; Z79.83 Long term (current) use of bisphosphonates; Z79.899 Other long term (current) drug therapy
CPT/HCPCS: 71275; 74177; 80047; 80076; 85025; 85610; 85730; 93005; 96361; 96374; 99284; J2405; J2470; Q9967

== ENCOUNTER → 2025-08-11 | Outpatient (REF) | payer MEDICARE, MEDICAID ==
[~2025-08-11] MED LIST changes: +ONDA-282 PO; +PROT1TAB2 PO
[2025-08-11 16:45] LABS: BASO # 0.1 10^3/uL (0.0-0.2); BASO % 0.8 % (0.0-1.0); EOS # 0.1 10^3/uL (0.0-0.5); EOS % 0.5 % (0.0-3.0); LYMPH # 1.9 10^3/uL (1.5-5.0); LYMPH % 18.0 % (24.0-44.0); MONO # 0.9 10^3/uL (0.0-0.8); MONO % 8.4 % (2.0-8.0); NEUTROPHILS # 7.5 10^3/uL (1.5-8.5); NEUTROPHILS % 72.0 % (36.0-66.0); PLATELET COUNT, AUTOMATED 253 10^3/uL (150-450)
[2025-08-11 16:48] LABS: IRON (FE) 12.0 UG/DL (65-175)
[2025-08-11 16:49] LABS: ALT/SGPT 10.0 U/L (7.0-40); AST/SGOT 18.0 U/L (<34); CALCIUM LEVEL 9.0 MG/DL (8.5-10.1); CARBON DIOXIDE LEVEL 27.0 MMOL/L (20-31); CHLORIDE LEVEL 106.0 MMOL/L (98-107); CHOLESTEROL LEVEL 100.0 MG/DL (<200); CHOLESTEROL RISK RATIO 2.24 (<5); CREATININE FOR GFR 1.13 MG/DL (0.70-1.30); GLOMERULAR FILTRATION RATE 75.8 (>56); LDL CHOLESTEROL 46.7 MG/DL (<100); NON-HDL-C 55.5 MG/DL; PERCENT SATURATION 5.5 % (19.7-50.0); POTASSIUM SERUM 3.7 MMOL/L (3.5-5.1); SODIUM LEVEL 144.0 MMOL/L (136-145); TRIGLYCERIDES LEVEL 44.0 MG/DL (<150)
[2025-08-11 17:00] LABS: APPEARANCE, URINE CLEAR (CLEAR); BACTERIA, URINE AUTO NEGATIVE (NEGATIVE); BILIRUBIN, URINE AUTO NEGATIVE (NEGATIVE); BLOOD, URINE BLOOD NEGATIVE (NEGATIVE); GLUCOSE, URINE (UA) AUTO NEGATIVE (NEGATIVE); KETONE, URINE AUTO NEGATIVE (NEGATIVE); LEUKOCYTE ESTERASE, URINE AUTO NEGATIVE (NEGATIVE); NITRITE, URINE AUTO NEGATIVE (NEGATIVE); PROTEIN, URINE AUTO 1+ mg/dL (NEGATIVE); RBC, URINE AUTO 4 /HPF (0-3); SPECIFIC GRAVITY URINE AUTO 1.014 (1.002-1.035); SQUAMOUS EPITHELIAL CELL UR AU 0 /HPF (0-6); UROBILINOGEN, URINE AUTO 2.0 mg/dL (0.0-2.0); WBC, URINE AUTO 1 /HPF (0-3)
[2025-08-11 17:09] LABS: CREATININE, URINE 137.8 MG/DL; MALB URINE SIEMENS 81.0 MG/L; MAU/CREAT RATIO 58.7 MCG/MG (0.0-30.0)
[2025-08-11 17:30] LABS: ESTIMATED AVERAGE GLUCOSE 111.0 MG/DL (60-110)
== END ==
LOC: M LAB REF 16:09
PROVIDERS: ATTEND Physician Assistant
DX: E78.5 Hyperlipidemia, unspecified (principal); D50.9 Iron deficiency anemia, unspecified; I10 Essential (primary) hypertension; Z79.899 Other long term (current) drug therapy